=== PATIENT | male | born 1960 | race Caucasian/White ===

== ENCOUNTER → 2018-07-12 09:26 | Outpatient (CLI) | payer BC, SELFPAY ==
--- NOTE | 2018-07-12 09:41 | MR_ITS ---
MR foot LT wo con Ordering Physician: Marcia Deleon MD Patient Age: 58 years: Male HISTORY: ITS.REASON: LEFT FOOT PAIN Left foot pain for 2 months pain at the dorsal aspect of foot toes and extends of the ankle and chin. Also dorsal numbness and tingling left foot TECHNIQUE: Multiplanar multisequence imaging without contrast. 1.5 T MR. COMPARISON : No previous studies . No plain films FINDINGS Osseous structures appear intact. No fractures. Satisfactory relationships on this study.. Toes, Forefoot and metatarsals satisfactory. Upper normal fluid at the first MTP joint. Upper normal signal at the sesamoids along the inferior aspect of first metatarsal head. The dorsal aspect foot shows no remarkable edema and the extensor tendons no significant appreciable abnormalities Appears to be adequate plantar arch .. Note edema throughout [place] fat pad posterior to the ankle joint.. Achilles tendon appears normal with no mid achilles tendinopathy associated. No prominent or discrete retrocalcaneobursitis. I would note generous posterior process of the talus with some fluid surrounding but no discrete fragmented os trigonum; still this possibly could reflect some mild posterior ankle impingement findings if clinical picture suggest such.. But would not account for dorsal foot pain reported in history.. Also note Slight increased fluid of the lateral subtalar joint which extends dorsally. At the lateral ankle be anterior tibial fibular and talofibular ligaments are nicely seen and intact. Upper normal fluid at the lateral ankle joint here and just beneath this area. There is upper normal signal at the distal tibialis posterior tendon near its attachment onto the medial navicular. Nonspecific. Requires correlation is a focal tenderness here.. Could reflect prior minor interstitial injury IMPRESSION: Osseous structures intact. No bone fracture or abnormal bone signal. No prominent findings at the toes nor dorsal foot. Minor observations as noted below.: . Mild edema throughout [place] fat pad posterior to the ankle joint. -Requires correlation . Also some upper normal to slightly increased fluid at lateral subtalar joint tracking dorsally is noted. Nonspecific .Upper normal signal within the distal tibialis posterior tendon. Nonspecific
== END ==
PROVIDERS: PCP Emergency Medicine; Visit Provider Emergency Medicine
DX: M79.672 Pain in left foot (principal)
CPT/HCPCS: 73718

== ENCOUNTER 2021-09-24 14:24 | Inpatient (IN) | payer BC, SELFPAY ==
[2021-09-24] VITALS (20 sets, daily range): BP systolic 131–188; BP diastolic 65–85; PULSE 48–62; RESP 13–19; TEMP 36.8–37; O2SAT 95–99; BMI 24.5; BMI 23.3
--- NOTE | 2021-09-24 | CA_ITS ---
APPROVED REPORT Exam: Pharmacologic Technologist: Hailee Smallwood, Ht: 5 ft 7 in Wt: 151 lbs BSA: 1.79 m2 HR: 54 bpm BP: 167/42 mmHg Rhythm: Sinus chely, right axis, LVH, marked ST-T abn inferiorly and laterally Medical History Medical History: HTN Medications: Aspirin,,,,, Metoprolol,,,,, Protonix,,,,, Aleve,,,,, NitrogGLYCERIN,,,,, Cardiac Risk Factors: HTN, Smoking Stress Test Details Test: LEXISCAN HR Resting HR: 58 bpm Max Heart Rate (APMHR): 159.380553 bpm Max HR Achieved: 120 bpm Target HR (85% APMHR): 135.511361 bpm % of APMHR: 75.47 Recovery HR: 74 bpm BP Resting BP: 167/42 mmHg Max BP: 184/97 mmHg Recovery BP: 146.0/83.0 mmHg ECG Resting ECG: sinus chely, right axis, LVH, marked ST-T abn inferiorly and laterally Clinical Exercise duration: 04:01 min Highest Stage Achieved: Stress ECG Conclusion During lexiscan pt experinced severe CP and SOA in recovery. Mild malaise during vasodilation. Frequent ventricular couplets & triplets in recovery. Exaggeration of baseline ST abns during vasodilation. ST elevation in anterior leads in recovery. Lexiscan induced STEMI. Pt given SL NTGX2 and STEMI alert called. 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 Test Summary REST . . . . . . . Sitting REST 03:32 . . 58 . 167/ 42 . . Stage 1 01:00 . . 97 . . . . Stage 2 01:00 . . 83 . 147/ 66 . . Stage 3 01:00 . . 77 . 144/ 72 . . Stage 4 01:00 . . 81 . . . . Stage 4 01:01 . . 80 . . . Stop exercise at 04:01 RECOVERY 01:00 . . 74 . 132/ 81 . . RECOVERY 02:00 . . 80 . 132/ 81 . . RECOVERY 03:00 . . 80 . 146/ 83 . . RECOVERY 04:00 . . 80 . 146/ 83 . . RECOVERY 05:00 . . 85 . 184/ 97 . . RECOVERY 06:00 . . 104 . 184/ 97 . . RECOVERY 07:00 . . 95 . 184/ 97 . . RECOVERY 08:00 . . 86 . 184/ 97 . . RECOVERY 09:00 . . 86 . 184/ 97 . . RECOVERY 10:00 . . 81 . 184/ 97 . . RECOVERY 11:00 . . 0 . 184/ 97 . . RECOVERY 11:35 . . 0 . 184/ 97 . . Electronically signed by : Simeon Jeff MD 09/25/2021 14:55:05
--- NOTE | 2021-09-24 | IR_ITS ---
APPROVED REPORT Patient Location: Emergent Manager Economic: GERSON Portillo RT (R) PROCEDURES Left heart catheterization Left ventriculogram Selective coronary angiogram Drug-eluting stent deployment to the left main artery Drug-eluting stent deployment to the ostial LAD Drug-eluting stent deployment to the ostial proximal circumflex artery Intravascular ultrasound to the LAD Intravascular ultrasound to the circumflex artery INDICATION Acute anterior ST elevation myocardial infarction, Coronary artery disease Informed consent was obtained prior to the procedure. COMPLICATIONS None Estimated Blood Loss: Less than 10 mls TECHNIQUE One percent lidocaine used to anesthetize the right anterior aspect of the wrist. The right radial artery was accessed via the Seldinger technique. A 6 Turk[place] sheath was placed in the right radial artery. 2.5 mg of verapamil, 800 mcg of nitroglycerin, 1mg Lidocaine and 5000 U Heparin were given through the arterial sheath. The Poppa catheter was also used to perform selective coronary angiogram. Therapeutic heparin had already been administered giving a therapeutic ACT. The guide was placed outside of the left main artery and a Choice PT extra-support wire was placed to the distal tip of the guide catheter without entering the [place] vessel. A 3 mm x 15 mm compliant balloon was then placed at the tip of the guide catheter. The guide catheter was placed in the left main artery and the wire was placed into the LAD followed by the balloon and immediately deployed at 20 juan and deflated. Following this a 4 mm x 15 mm resolute Damir stent was placed in the ostial LAD extending back to the left main artery deployed at 20 juan. A wire was then placed into the left main artery down to the dominant circumflex artery. A 3.5 mm balloon was then used to open the struts going into the circumflex artery. A 5 mm x 8 mm balloon was then placed into the distal left main artery and deployed at 24 juan on multiple occasions. Intravascular ultrasound probe was advanced which demonstrated slight under sizing of the stent in the distal left main artery and proximal LAD. A 4.5 x 15 mm noncompliant balloon was then placed in the LAD back into the left main artery and deployed at 24 juan. Repeat angiography demonstrated significant disease in the dominant circumflex artery therefore a 3.5 x 18 mm resolute [place] stent was placed in the ostial segment of the circumflex artery and deployed at 24 juan reducing the severe stenosis to 0%. A 4.5 x 15 mm balloon was placed back into the LAD left main artery and deployed at 24 juan. At the end of the procedure excellent angiographic results were obtained with wide patency of the left main artery LAD and dominant circumflex artery. After achieving excellent angiographic results the apparatus was removed. 800 mcg of intra-arterial nitroglycerin was administered in order to reduce blood pressure. A left heart catheterization left ventriculogram was performed with the Poppa catheter. Then the procedure the sheath was removed and hemostasis was achieved using TR banding patient was transferred to the postop holding in stable addition ANGIOGRAPHIC RESULTS The left main artery Has a distal 90% stenosis The left anterior descending artery Has an ostial greater than 90% stenosis there is additional mid vessel 30 and 40% stenosis The circumflex artery Is a dominant vessel and has dense calcification in the ostial proximal segment greater than 50%. The mid segment has an additional 40% stenosis. The right coronary artery Small nondominant with a proximal 90% stenosis. This vessel does not encroach upon the left main artery and is barely 2 mm in diameter T
--- NOTE | 2021-09-24 11:32 | NM_ITS ---
APPROVED REPORT Exam: Nuclear Stress Test Indication: chest pain..abn ecg..short of breath Patient Location: Outpatient Stress Tech: Hailee Cl DUMONT Tech:Jeana AbadGERSON RT(R)(N) Ht: 5 ft 7 in Wt: 156 lbs HR: 54 bpm BP: 167/42 mmHg BSA: 1.82 m2 BMI: 24.4 History: chest pain..abn ecg..short of breath Procedure: Patient received a 0.4 mg of intravenous Lexiscan, resting heart rate 54 bpm, resting blood pressure 167/42 mmHg, with Lexiscan maximum heart rate achived was 83 bpm which is 85 % of the maximum predicted heart rate and blood pressure was 147/66 mmHg. Patient started to have chest pain a couple of mins after injecting lexiscan..Cristobal Taylor PA in the stress room called a stemi alert, so patient went straight to the tutorial laboratory supervisor and I was unable to finish stress pictures Cardiac Stress and Resting SPECT Images: Cardiac Stress and Resting SPECT images were obtained using technetium 99m Myoview 32.8 mCi stress and 10.12 mCi at rest. Conclusion: 1. Patient developed marked ST-T changes with Lexiscan, subsequently patient was taken to the Sales Engagement Executive, no imaging were performed Electronically signed by : Simeon Jeff MD 09/25/2021 14:55:46
[2021-09-24 13:59] LABS: Chloride 105 mmol/L (98-107); Potassium 4.2 mmoL/L (3.5-5.1); Sodium 133 mmol/L (136-145)
[2021-09-24 14:02] LABS: Anion Gap 12.2 mEq/L (5-15); Basophils # 0.1 K/mm3 (0-0.2); Basophils % 0.7 % (0.1-2.0); Blood Urea Nitrogen 14 mg/dl (9-20); Calcium 8.6 mg/dl (8.4-10.2); Carbon Dioxide 20 mmol/L (22.0-30.0); Creatinine Clearance Estimated 78 mL/min (50-200); Eosinophils # 0.3 K/mm3 (0.0-0.4); Eosinophils % 2.4 % (0.1-12.0); Estimated Glomerular Filt Rate 86 ml/min (>60); GFR (African American) 104 ML/MIN (>60); Glucose 123 mg/dl (74-100); Hematocrit 40.3 % (42.0-52.0); Hemoglobin 13.4 g/dL (14.1-18.0); Lymphocytes # 4.4 K/mm3 (0.7-4.5); Lymphocytes % 35.8 % (10-50); Mean Corpuscular HGB Conc 33.2 g/dL (31.8-35.4); Mean Corpuscular Volume 102.6 fl (80-94); Mean Platelet Volume 7.7 fl (7.4-10.4); Monocytes # 0.7 K/mm3 (0.1-1.0); Monocytes % 5.5 % (1.7-9.3); Neutrophils # 6.9 K/mm3 (1.8-7.8); Neutrophils % 55.5 % (37.0-80.0); Platelet Count 255 K/mm3 (142-424); Red Blood Count 3.93 M/mm3 (4.60-6.20); Red Cell Distribution Width 15.3 % (11.5-17.5); White Blood Count 12.3 K/mm3 (4.8-10.8)
--- NOTE | 2021-09-24 14:27 | P.CONPHA_ITS ---
[facility] Pharmacy VTE Monitoring - Patient Demographics Admission date: 09/24/21 Report Date: 09/24/21 Time: 14:27 Allergies/Adverse Reactions: Patient Allergies codeine Adverse Reaction (Verified 09/16/21 14:31) Height: 1.7 m Weight: 70.9 kg - VTE Risk Labs: VTE Related Lab Results Hgb 13.4 g/dL (14.1-18.0) L 09/24/21 13:45 Hct 40.3 % (42.0-52.0) L 09/24/21 13:45 Plt Count 255 K/mm3 (142-424) 09/24/21 13:45 BUN 14 mg/dl (9-20) 09/24/21 13:45 Creatinine 0.90 mg/dl (0.66-1.25) 09/24/21 13:45 Estimated Creat Clear 78 mL/min (50-200) 09/24/21 13:45 - Prophylaxis VTE Prophylaxis Ordered?: Yes Types of VTE Prophylaxis: TEDS Knee High Location of Applied Device: Bilateral Lower Extremeties
--- NOTE | 2021-09-24 14:28 | HMH.CNCARD ---
History of Present Illness Consult date: 09/24/21 Requesting physician: Andrea Moses Consult reason: chest pain Chief complaint: chest pain History of present illness: This is a 61 year old white male who was in the hospital for Lexiscan myoview stress testing today. After the Lexiscan portion of the stress test was over and he was taking a drink of [place], he had sudden onset on chest pain. this is a pressure sensation in the center of the chest. did not radiate. associated with SOB, nausea and diaphoresis. this was severe 10/10 pain. pt took 2 nitro of his own meds without improvement in symptoms. Pt was having an anterior STEMI and will be taken directly to the crime lab analyst. [facility] History I have reviewed the patient's past medical history: Yes Medical History: Reports:: Ulcer *Have you ever received a pneumonia vaccine?: No *Have you received a flu vaccine this season?: No Other Surgeries: Yes: Other (Bone put in his ear ) Amputation: No Fractures: No - *Social History Smoking Status: Current every day smoker Tobacco Type: cigarettes Alcohol Intake: never *Occupational Status:: employed Housing: house Household Members: significant other *Travel in the last 8 weeks: None Family Hx:: No significant family history Meds Home Medications Medication Instructions Recorded Confirmed Type aspirin 81 mg chewable tablet 81 mg PO DAILY #100 tab 09/14/21 09/24/21 Rx naproxen sodium 220 mg tablet 220 mg PO BIDP PRN 09/14/21 09/24/21 History Metoprolol Succinate [Metoprolol 50 mg PO DAILY 09/24/21 09/24/21 History Succinate 50mg Tablet*] Nitroglycerin 0.4 mg SL Q5MINP PRN 09/24/21 09/24/21 History Pantoprazole Sodium 40 mg PO DAILY 09/24/21 09/24/21 History Allergies Allergy/AdvReac Type Severity Reaction Status Date / Time codeine AdvReac Verified 09/16/21 14:31 Exam Vital signs and Labs for Last 24 Hours: Laboratory Results - last 24 hr 09/24/21 13:45: WBC 12.3 H, RBC 3.93 L, Hgb 13.4 L, Hct 40.3 L, MCV 102.6 H, MCH 34.0 H, MCHC 33.2, RDW 15.3, Plt Count 255, MPV 7.7, Neut % (Auto) 55.5, Lymph % (Auto) 35.8, [place] % (Auto) 5.5, Eos % (Auto) 2.4, Baso % (Auto) 0.7, Neut # (Auto) 6.9, Lymph # (Auto) 4.4, [place] # (Auto) 0.7, Eos # (Auto) 0.3, Baso # (Auto) 0.1 09/24/21 13:45: Sodium 133 L, Potassium 4.2, Chloride 105, Carbon Dioxide 20 L, Anion Gap 12.2, BUN 14, Creatinine 0.90, Estimated Creat Clear 78, Estimated GFR 86, Est GFR ( Amer) 104, Glucose 123 H, Calcium 8.6 I & O for Last 24 hours: Intake & Output 09/21/21 09/22/21 09/23/21 09/24/21 23:59 23:59 23:59 23:59 Weight 156 lb 4.924 oz Narrative: [facility] shows: ANGIOGRAPHIC RESULTS The left main artery Has a distal 90% stenosis The left anterior descending artery Has an ostial greater than 90% stenosis there is additional mid vessel 30 and 40% stenosis The circumflex artery Is a dominant vessel and has dense calcification in the ostial proximal segment greater than 50%. The mid segment has an additional 40% stenosis. The right coronary artery Small nondominant with a proximal 90% stenosis. This vessel does not encroach upon the left main artery and is barely 2 mm in diameter The LABOY ventriculogram reveals Hyperdynamic 75% The left ventricular end-diastolic pressure [address] mmHg [address] Acute anterior ST elevation myocardial infarction involving a critically stenosed distal left main artery also involving a critically stenosed ostial LAD Successful left main reconstruction with bifurcating stents into the proximal LAD and proximal dominant circumflex artery Hyperdynamic ventricle consistent with hypertensive heart disease Elevated LVEDP consistent with hypertensive heart disease PLAN 1. Brilinta 90 twice daily plus aspirin 81 mg daily 2. Control of hypertension 3. MOIRA inhibitor's and beta-blockers 4. Avoidance of tobacco products 5. LDL goal of 55 to be achieved with high intensity statin 6. Cardiac rehabilitation 7. Aggressive risk factor amanda
--- NOTE | 2021-09-24 14:33 | HMH.PHAINT ---
MEDICATION RECONCILIATION COMPLETED ON PATIENT USING EXTERNAL FILL HISTORY FROM PHARMACY AND LIST FROM PCP OFFICE. -YANDY MACD
[2021-09-24 14:53] LABS: Coronavirus 19, PCR Not Detected (NotDetected); Influenza A, PCR Not Detected (NotDetected); Influenza B, PCR Not Detected (NotDetected)
--- NOTE | 2021-09-24 15:00 | PC.NURSE ---
arrived to room 217 at this time
[2021-09-24 15:02] LABS: CATHL Activated Clotting Time 345 SEC (74-125)
[2021-09-24 15:02] LABS: CATHL Activated Clotting Time > 400 SEC (74-125)
[2021-09-24 15:02] LABS: CATHL Activated Clotting Time 316 SEC (74-125)
--- NOTE | 2021-09-24 15:20 | CA_ITS ---
APPROVED REPORT EXAM: Comprehensive 2D, Doppler, and color-flow Echocardiogram Flexible Machining System Machinist: Claudia Crespo, RCS, RVS Ht: 5 ft 6 in Wt: 151lbs BSA: 1.77 BP: 145/58 mmHg Indications: [id number]-0/17/22, ABN EKG, Smoker, SOB, CP, HTN 2D Dimensions Aortic Root 1.35 cm LA Volume 49.30 mL Left Atrium 1.59 cm LA Volume Index 27.90 mL/m2 (M/F) 16-34 LVOT 1.81 cm (M/F) 1.5-2.5 M-Mode Dimensions RVDd 2.22 cm (0.9-2.6) LA Diam 3.91 cm (1.9-4.0) LVDd 5.01 cm (3.5-5.7) Ao Diam 2.91 cm (2.0-3.7) LVDs 3.58 cm (3.5-5.7) IVSd 1.22 cm (0.6-1.1) PWd 0.97 cm (0.6-1.1) EF (Teich) 54.80% EPSs 0.32 cm FS 28.50% EDV (Teich) 118.80 mL TAPSE 2.46 (<1.7) ESV (Teich) 53.70 mL LV Diastology E Decel Time 220.00 (160-240 msec) E/A Ratio 1.29 MED E' 6.50 (< 7 cm/sec) MED A' 9.20 cm/s E'/MED E' Ratio 16.65 (>14) LAT E' 5.30 (<10 cm/sec) LAT A' 7.50 cm/s E/LAT E' Ratio 20.42 (>14) Aortic Valve LVOT Max 125.00 (70-110 cm/s) LVOT VTI 23.71 cm AoV Peak Gerardo. 156.00 (50-130 cm/s) AO Peak GR. 9.70 mmHg AO Mean GR. 4.40 (<5 mmHg) AO VTI 30.36 (18-25 cm) JORGE (VTI) 2.01 (2.5-4.5 cm2) Mitral Valve MV A Velocity 84.00 (40-130 cm/s) E/A Ratio 1.29 MV Decel. Time 220.00 (160-240 ms) Pulmonary Valve PV Peak Velocity 127.00 (50-150 cm/s) Tricuspid Valve TR P. Velocity 137.00 cm/s Left Ventricle Left atrium is mildly enlarged, left ventricle normal size, mild concentric left ventricular hypertrophy, visually estimated ejection fraction 55% with no regional wall motion abnormality, diastolic parameters inconclusive in the study. Right Ventricle Right atrium and right ventricle are normal size and contractility. Aortic Valve Aortic valve is minimally thickened and calcified without aortic stenosis or aortic insufficiency. Mitral Valve Mitral valve has mitral annular calcification there is no mitral stenosis. There is mild mitral regurgitation. Tricuspid Valve Tricuspid grossly normal, there is mild tricuspid rotation, tricuspid regurgitation jet velocity is inadequate for calculation of the right ventricular systolic pressure. Pulmonic Valve Pulmonic valve is poorly visualized. Great Vessels Aortic root is normal size. Inferior vena cava is normal size with normal inspiratory collapse. Pericardium No significant pericardial effusion noted. Conclusion 1. Mildly enlarged left atrium, normal left ventricular size, mild concentric left ventricular hypertrophy, visually estimated ejection fraction 55% with no obvious regional wall motion abnormality, diastolic parameters are inconclusive in the study. 2. Mild mitral and tricuspid regurgitation. 3. No significant pericardial effusion noted. Electronically signed by : Simeon Jeff MD 09/25/2021 14:01:50
--- NOTE | 2021-09-24 16:34 | PC.NURSE ---
Pt's HR upon arrival to the floor was 58. It has been trending down and is now staying around 48. Dr. [place] has been notified. BP 134/67.
[2021-09-25] VITALS (15 sets, daily range): BP systolic 130–178; BP diastolic 48–83; PULSE 49–60; RESP 13–21; TEMP 36.7–37.1; O2SAT 95–98; BMI 22.5; BMI 22.4
--- NOTE | 2021-09-25 03:56 | PC.NURSE ---
No acute changes noted. Pt denies any discomfort or soa. Pt has remained sinus chely on telemetry with ST depression. HR declined as low as 49 this shift. BP was elevated early in shift. Currently stable. Pt c/o slight headache early in the evening, but declined any medication for it. He has ambulated to without any difficulty. (R) radial site is C/D/I. No other concerns. Will continue to monitor.
[2021-09-25 06:39] LABS: Alanine Aminotransferase 15 U/L (12-78); Alkaline Phosphatase 73 U/L (38-126); Aspartate Amino Transferase 29 U/L (17-59); Bilirubin,Direct 0.2 mg/dl (0.0-0.4); Bilirubin,Indirect 0.6 mg/dL (0.0-0.9); Bilirubin,Total 0.8 mg/dl (0.2-1.3); Bilirubin,Unconjugated 0.6 mg/dL (0.0-1.1); Cholesterol 137 mg/dl (140-200); Triglycerides 135 mg/dl (30-150); VLDL Cholesterol 27 mg/dL (0-40)
[2021-09-25 06:40] LABS: Albumin Level 3.8 g/dl (3.5-5.0); Chol/HDL Ratio 3.6 (1-3.5); HDL Cholesterol 38 mg/dl (40-60); Total Protein,Serum 6.6 g/dl (6.3-8.2)
[2021-09-25 06:42] LABS: Chloride 104 mmol/L (98-107); Potassium 4.3 mmoL/L (3.5-5.1); Sodium 132 mmol/L (136-145)
[2021-09-25 06:45] LABS: Anion Gap 6.3 mEq/L (5-15); Blood Urea Nitrogen 14 mg/dl (9-20); Carbon Dioxide 26 mmol/L (22.0-30.0); Creatinine Clearance Estimated 71 mL/min (50-200); Estimated Glomerular Filt Rate 76 ml/min (>60); GFR (African American) 92 ML/MIN (>60)
[2021-09-25 06:46] LABS: Calcium 8.3 mg/dl (8.4-10.2); Glucose 110 mg/dl (74-100)
[2021-09-25 06:47] LABS: Basophils # 0.1 K/mm3 (0-0.2); Basophils % 0.6 % (0.1-2.0); Eosinophils # 0.2 K/mm3 (0.0-0.4); Eosinophils % 1.9 % (0.1-12.0); Hematocrit 39.9 % (42.0-52.0); Hemoglobin 12.9 g/dL (14.1-18.0); Lymphocytes # 3.3 K/mm3 (0.7-4.5); Lymphocytes % 29.6 % (10-50); Mean Corpuscular HGB Conc 32.4 g/dL (31.8-35.4); Mean Corpuscular Hemoglobin 33.8 pg (27.0-31.2); Mean Corpuscular Volume 104.3 fl (80-94); Mean Platelet Volume 7.9 fl (7.4-10.4); Monocytes # 0.9 K/mm3 (0.1-1.0); Monocytes % 7.9 % (1.7-9.3); Neutrophils # 6.8 K/mm3 (1.8-7.8); Neutrophils % 60.1 % (37.0-80.0); Platelet Count 231 K/mm3 (142-424); Red Blood Count 3.83 M/mm3 (4.60-6.20); Red Cell Distribution Width 15.5 % (11.5-17.5); White Blood Count 11.2 K/mm3 (4.8-10.8)
[2021-09-25 06:56] LABS: Direct LDL Cholesterol 78.83 mg/dL (100-129)
--- NOTE | 2021-09-25 08:43 | HMH.HP ---
*Admission Date: 09/24/21 *Chief complaint: chest pain *History of present illness: 61 year old white male who was in the hospital for Lexiscan myoview stress testing today. After the Lexiscan portion of the stress test was over and he was taking a drink of [place], he had sudden onset on chest pain. this is a pressure sensation in the center of the chest. did not radiate. associated with SOB, nausea and diaphoresis. this was severe 10/10 pain. pt took 2 nitro of his own meds without improvement in symptoms. Pt was having an anterior STEMI and will be taken directly to the collaborative teacher. pt admitted for monitoring [facility] History I have reviewed the patient's past medical history: Yes Medical History: Reports:: Ulcer Denies:: Cancer, Diabetes Mellitus Type 1, Diabetes Mellitus Type 2, MRSA *Have you ever received a pneumonia vaccine?: No *Have you received a flu vaccine this season?: No Other Surgeries: Yes: Other (Bone put in his ear ) Amputation: No Fractures: No - *Social History Smoking Status: Current every day smoker Tobacco Type: cigarettes # Packs/Day (cigarettes): 1 Alcohol Intake: never *Occupational Status:: employed Housing: house Household Members: significant other *Travel in the last 8 weeks: None Family Hx:: Unable to obtain Review of Systems - Review of Systems Review of systems:: pertinent systems reviewed and negative unless documented below - Constitutional Denies body ache(s), Denies lack of energy - Eyes Denies blind spots - ENT Denies bleeding gums, Denies headache(s) - *Cardiovascular Reports chest pain, Reports chest pain at rest, Reports chest pain with activity, Reports shortness of breath - *Respiratory Reports shortness of breath, Denies cough - *Gastrointestinal Denies abdominal pain - *Genitourinary Denies urinary incontinence - *Musculoskeletal Denies abnormal walking - Integumentary/Breasts Denies acne - *Neurologic Denies dizziness - Psychiatric Denies lack of enjoyment - Endocrine Denies excessive sweating - Hematologic/Lymphatic Denies easy bruising - Allergic/Immunologic Denies itchy eyes Meds Home Medications Medication Instructions Recorded Confirmed Type aspirin 81 mg chewable tablet 81 mg PO DAILY #100 tab 09/14/21 09/24/21 Rx naproxen sodium 220 mg tablet 220 mg PO BIDP PRN 09/14/21 09/24/21 History Metoprolol Succinate [Metoprolol 50 mg PO DAILY 09/24/21 09/24/21 History Succinate 50mg Tablet*] Nitroglycerin 0.4 mg SL Q5MINP PRN 09/24/21 09/24/21 History Pantoprazole Sodium 40 mg PO DAILY 09/24/21 09/24/21 History Allergies Allergy/AdvReac Type Severity Reaction Status Date / Time codeine AdvReac Verified 09/16/21 14:31 Exam Vital signs and Labs for Last 24 Hours: Temp Pulse Resp BP Pulse Ox 98.1 F 50 L 21 136/59 L 98 09/25/21 08:00 09/25/21 08:00 09/25/21 08:00 09/25/21 08:00 09/25/21 08:00 Laboratory Results - last 24 hr 09/24/21 12:20: Activated Clotting Time 345 H* 09/24/21 13:45: WBC 12.3 H, RBC 3.93 L, Hgb 13.4 L, Hct 40.3 L, MCV 102.6 H, MCH 34.0 H, MCHC 33.2, RDW 15.3, Plt Count 255, MPV 7.7, Neut % (Auto) 55.5, Lymph % (Auto) 35.8, [place] % (Auto) 5.5, Eos % (Auto) 2.4, Baso % (Auto) 0.7, Neut # (Auto) 6.9, Lymph # (Auto) 4.4, [place] # (Auto) 0.7, Eos # (Auto) 0.3, Baso # (Auto) 0.1 09/24/21 13:45: Sodium 133 L, Potassium 4.2, Chloride 105, Carbon Dioxide 20 L, Anion Gap 12.2, BUN 14, Creatinine 0.90, Estimated Creat Clear 78, Estimated GFR 86, Est GFR ( Amer) 104, Glucose 123 H, Calcium 8.6 09/24/21 14:41: Activated Clotting Time > 400 H* 09/24/21 14:48: SARS-CoV-2 (PCR) Not detected, Influenza A Untype (PCR) Not detected, Influenza Type B (PCR) Not detected 09/24/21 15:11: Activated Clotting Time 316 H* D 09/25/21 05:07: Total Bilirubin 0.8, Direct Bilirubin 0.2, Conjugated Bilirubin 0.0, Indirect Bilirubin 0.6, Unconjugated Bilirubin 0.6, AST 29, ALT 15, Alkaline Phosphatase 73, Total Protein 6.6, Albumin
--- NOTE | 2021-09-25 10:47 | HMH.PNCARD ---
Subjective Date: 09/25/21 Time: 10:47 Principal diagnosis: STEMI Interval history: 61-year-old white male in bed in no acute distress denies chest pain, pressure or tightness overnight. No further episodes of heartburn. Nursing relates low heart rate overnight with holding of beta-peter this AM. Have asked the patient to ambulate this morning to clarify what dose of beta-peter he needs to be on. Exam Vital signs and Labs for Last 24 Hours: Temp Pulse Resp BP Pulse Ox 98.1 F 49 L 16 136/64 97 09/25/21 08:00 09/25/21 10:00 09/25/21 10:00 09/25/21 10:00 09/25/21 10:00 Laboratory Results - last 24 hr 09/24/21 12:20: Activated Clotting Time 345 H* 09/24/21 13:45: WBC 12.3 H, RBC 3.93 L, Hgb 13.4 L, Hct 40.3 L, MCV 102.6 H, MCH 34.0 H, MCHC 33.2, RDW 15.3, Plt Count 255, MPV 7.7, Neut % (Auto) 55.5, Lymph % (Auto) 35.8, [place] % (Auto) 5.5, Eos % (Auto) 2.4, Baso % (Auto) 0.7, Neut # (Auto) 6.9, Lymph # (Auto) 4.4, [place] # (Auto) 0.7, Eos # (Auto) 0.3, Baso # (Auto) 0.1 09/24/21 13:45: Sodium 133 L, Potassium 4.2, Chloride 105, Carbon Dioxide 20 L, Anion Gap 12.2, BUN 14, Creatinine 0.90, Estimated Creat Clear 78, Estimated GFR 86, Est GFR ( Amer) 104, Glucose 123 H, Calcium 8.6 09/24/21 14:41: Activated Clotting Time > 400 H* 09/24/21 14:48: SARS-CoV-2 (PCR) Not detected, Influenza A Untype (PCR) Not detected, Influenza Type B (PCR) Not detected 09/24/21 15:11: Activated Clotting Time 316 H* D 09/25/21 05:07: Total Bilirubin 0.8, Direct Bilirubin 0.2, Conjugated Bilirubin 0.0, Indirect Bilirubin 0.6, Unconjugated Bilirubin 0.6, AST 29, ALT 15, Alkaline Phosphatase 73, Total Protein 6.6, Albumin 3.8, Triglycerides 135, Cholesterol 137 L, LDL Cholesterol Direct 78.83 L, VLDL Cholesterol 27, HDL Cholesterol 38 L, Cholesterol/HDL Ratio 3.6 H 09/25/21 05:07: WBC 11.2 H, RBC 3.83 L, Hgb 12.9 L, Hct 39.9 L, MCV 104.3 H, MCH 33.8 H, MCHC 32.4, RDW 15.5, Plt Count 231, MPV 7.9, Neut % (Auto) 60.1, Lymph % (Auto) 29.6, [place] % (Auto) 7.9, Eos % (Auto) 1.9, Baso % (Auto) 0.6, Neut # (Auto) 6.8, Lymph # (Auto) 3.3, [place] # (Auto) 0.9, Eos # (Auto) 0.2, Baso # (Auto) 0.1 09/25/21 05:07: Sodium 132 L, Potassium 4.3, Chloride 104, Carbon Dioxide 26, Anion Gap 6.3, BUN 14, Creatinine 1.00, Estimated Creat Clear 71, Estimated GFR 76, Est GFR ( Amer) 92, Glucose 110 H, Calcium 8.3 L I & O for Last 24 hours: Intake & Output 09/22/21 09/23/21 09/24/21 09/25/21 11:59 11:59 11:59 11:59 Intake Total 480 / 480 Output Total 600 / 600 Balance -120 / -120 Weight 143 lb 9.6 oz - Constitutional no acute distress - *Routine Respiratory Exam Present: CTA bilaterally - *Routine Cardiovascular Exam Present: RRR - *Routine Extremities Exam Absent: cyanosis, clubbing, edema - *Routine Neurological Exam Present: alert, oriented X3 Progress Note: A&P (1) STEMI (ST elevation myocardial infarction) Status: Acute (2) Angina pectoris Status: Acute (3) Smoker Status: Acute (4) CAD (coronary artery disease) Status: Acute (5) HLD (hyperlipidemia) Status: Acute (6) HTN (hypertension) Status: Acute Assessment and Plan for All Diagnoses:: Clinically stable from a cardiac standpoint. No arrhythmias noted on telemetry overnight Possibly home later today Home medication recommendations Aspirin 81 mg daily Brilinta 90 mg twice daily Atorvastatin 80 mg daily Lisinopril 20 mg daily Metoprolol succinate 12.5 mg daily Follow-up in our office in 1 week.
--- NOTE | 2021-09-25 14:08 | PC.NURSE ---
Called and spoke with Jillian, to move patient status in the computer from Stepdown to acute.
--- NOTE | 2021-09-25 14:26 | PC.NURSE ---
pt has ambulated around entire unit twice today. No episodes of lightheadedness, dizziness, or weakness. Denies chest pain and headaches today. Gait is steady. HR mainly in the 40s today but increased to 60 with ambulation.
--- NOTE | 2021-09-25 20:44 | HMH.DCSUM ---
General - General Admission date:: 09/24/21 Discharge date: 09/25/21 HPI HPI: 61 year old white male who was in the hospital for Lexiscan myoview stress testing today. After the Lexiscan portion of the stress test was over and he was taking a drink of Mt. Dew, he had sudden onset on chest pain. this is a pressure sensation in the center of the chest. did not radiate. associated with SOB, nausea and diaphoresis. this was severe 10/10 pain. pt took 2 nitro of his own meds without improvement in symptoms. Pt was having an anterior STEMI and will be taken directly to the geophysical laboratory director. pt admitted for monitoring Hospital Course Hospital Course: pt with acute stemi after stress test - was taken to geophysical laboratory director -ANGIOGRAPHIC RESULTS The left main artery Has a distal 90% stenosis The left anterior descending artery Has an ostial greater than 90% stenosis there is additional mid vessel 30 and 40% stenosis The circumflex artery Is a dominant vessel and has dense calcification in the ostial proximal segment greater than 50%. The mid segment has an additional 40% stenosis. The right coronary artery Small nondominant with a proximal 90% stenosis. This vessel does not encroach upon the left main artery and is barely 2 mm in diameter The LABOY ventriculogram reveals Hyperdynamic 75% The left ventricular end-diastolic pressure 20 mmHg IMPRESSION Acute anterior ST elevation myocardial infarction involving a critically stenosed distal left main artery also involving a critically stenosed ostial LAD Successful left main reconstruction with bifurcating stents into the proximal LAD and proximal dominant circumflex artery Hyperdynamic ventricle consistent with hypertensive heart disease Elevated LVEDP consistent with hypertensive heart disease PLAN 1. Brilinta 90 twice daily plus aspirin 81 mg daily 2. Control of hypertension 3. MOIRA inhibitor's and beta-blockers 4. Avoidance of tobacco products 5. LDL goal of 55 to be achieved with high intensity statin 6. Cardiac rehabilitation 7. Aggressive risk factor modification a 61 year old white male who was in the hospital for Lexiscan myoview stress testing today. After the Lexiscan portion of the stress test was over and he was taking a drink of Mt. Dew, he had sudden onset on chest pain. this is a pressure sensation in the center of the chest. did not radiate. associated with SOB, nausea and diaphoresis. this was severe 10/10 pain. pt took 2 nitro of his own meds without improvement in symptoms. Pt was having an anterior STEMI and will be taken directly to the geophysical laboratory director. . Patient was here for stress test and after Lexiscan was infused the patient had ST elevation. STEMI alert was called and the patient was taken directly to the cardiac catheterization laboratory. The patient had stenting to the left main artery and circumflex artery. He tolerated the procedure well and be on dual antiplatelet therapy with Brilinta and aspirin. 2. Continue metoprolol. 3. Start lisinopril 20 mg p.o. daily status post STEMI. 4. We will get an echocardiogram to evaluate his LV function. 5. Blood pressure is elevated. This will likely improve with lisinopril. 6. His LDL goal is less than 55. We will get a lipid panel in the morning. On a statin. 7. Tobacco cessation is highly advised and counseled. 8. Further recommendations were made pending the patient's response to treatment. stable from a cardiac standpoint. No arrhythmias noted on telemetry overnight Possibly home later today Home medication recommendations Aspirin 81 mg daily Brilinta 90 mg twice daily Atorvastatin 80 mg daily Lisinopril 20 mg daily Metoprolol succinate 12.5 mg daily Follow-up in our office in 1 week. pt has did well with stable activity and vital signs and will be d/c to see pcp and card Objective Vital signs: Temp Pulse Resp BP Pulse Ox 98.4 F 58 L 16 132/65 97 09/25/21 20:00 09/25/21 20:00 09/25/21 20:00 09/25/21 20:00 0
--- NOTE | 2021-09-25 23:44 | PC.NURSE ---
DSG to (R) radial cath site removed. No hematoma or bleeding noted. IV #20 RAC DC. Education provided. Arm immobilizer placed. Pt left floor in WC accompanied by staff to family car at [id number].
--- NOTE | 2021-09-26 10:44 | HMH.PHACLD ---
LEFT AFTER HOURS, VERIFIED PATIENT IS ON ALL MEDICATIONS HE SHOULD BE FOLLOWING A STENT: -ASPIRIN -BRILINTA -METOPROLOL -ATORVASTATIN -LISINOPRIL
== END 2021-09-25 22:12 | disposition home or self-care (01) | DRG 247 ==
LOC: 2ND 14:25
PROVIDERS: Internal Medicine; Nurse Practitioner Family; Admitting Provider Family Medicine; PCP Family Medicine; Visit Provider Family Medicine
PROC: 027135Z Dilation of Coronary Artery, Two Arteries with Two Drug-eluting Intraluminal Devices, Percutaneous Approach (ICD-10-PCS; principal; 2021-09-24 09:45)
DX: I21.01 ST elevation (STEMI) myocardial infarction involving left main coronary artery (principal); I25.119 Atherosclerotic heart disease of native coronary artery with unspecified angina pectoris; E78.5 Hyperlipidemia, unspecified; I10 Essential (primary) hypertension; F17.210 Nicotine dependence, cigarettes, uncomplicated; Z71.6 Tobacco abuse counseling; Z20.822 Contact with and (suspected) exposure to COVID-19
CPT/HCPCS: 78452; 80048; 80061; 80076; 85025; 85347; 92928; 92941; 93017; 93306; 93458; 99152; 99153; A9502; C1725; C1769; C1876; C9600; C9606; C9803; J1644; J2785; Q9967; U0003; U0005

== ENCOUNTER → 2021-10-09 08:23 | Outpatient (CLI) | payer BC, SELFPAY ==
--- NOTE | 2021-10-09 08:23 | US_ITS ---
FINAL REPORT CLINICAL HISTORY: tobacco user FINDINGS: Limited sonographic images were obtained of the abdomen to evaluate the abdominal aorta and iliac arteries. The abdominal aorta measures up to 1.9 cm in greatest dimension. There is mild to moderate plaque noted. The iliac arteries are within normal limits. They measure 1.1 cm on the left and 1.2 cm on the right. IMPRESSION: No evidence of abdominal aortic aneurysm. Reviewed, Interpreted and Dictated by Obey Ferreira III, MD Transcribed by Deepika Tomas Authenticated by Obey Ferreira III, MD on 10/09/2021 11:26:19 AM [facility]
--- NOTE | 2021-10-09 08:43 | CA_ITS ---
FINAL REPORT TECHNIQUE: Color Doppler, duplex Doppler and schmitt scale sonography of the bilateral neck arterial vasculature was performed. Velocities were measured in the carotid arteries. Stenosis evaluation based on the validated velocity criteria. CLINICAL HISTORY: left carotid bruit, recent [place], 2 cardiac stents last month, CAD, smoker, HTN, HLD. FINDINGS: The peak systolic velocity of the right common carotid artery is 113 cm/s. The peak systolic velocity of the right internal carotid artery is 143 cm/s and end diastolic velocity 37 cm/s. A mild amount of plaque is present. The right external carotid artery is patent. The right vertebral artery is patent with antegrade flow. ICA/CCA ratio: 1.7 The peak systolic velocity of the left common carotid artery is 100 cm/s. The peak systolic velocity of the left internal carotid artery is 268 cm/s and end diastolic velocity 83 cm/s. A mild amount of plaque is present. The left external carotid artery is patent.The left vertebral artery is patent with antegrade flow. ICA/CCA ratio: 4.0 IMPRESSION: 70-99% left carotid stenosis. Consider correlation with CTA. Less than 50% right carotid stenosis. Bilateral patent vertebral arteries with antegrade flow. Reviewed, Interpreted and Dictated by Obey Ferreira III, MD Transcribed by Bunny Abreu Authenticated by Obey Ferreira III, MD on 10/09/2021 10:20:[address] [facility]
== END ==
PROVIDERS: PCP Family Medicine; Visit Provider Nurse Practitioner Family
DX: R09.89 Other specified symptoms and signs involving the circulatory and respiratory systems (principal); I25.10 Atherosclerotic heart disease of native coronary artery without angina pectoris; I21.01 ST elevation (STEMI) myocardial infarction involving left main coronary artery; I10 Essential (primary) hypertension; E78.5 Hyperlipidemia, unspecified; F17.200 Nicotine dependence, unspecified, uncomplicated
CPT/HCPCS: 76770; 93880

== ENCOUNTER → 2023-01-13 23:00 | Outpatient (CLI) | payer BC, SELFPAY ==
[2023-01-13 18:39] LABS: Basophils % 0.4 % (0.1-2.0); Eosinophils # 0.4 K/mm3 (0.0-0.4); Eosinophils % 4.6 % (0.1-12.0); Hematocrit 43.4 % (42.0-52.0); Lymphocytes # 2.6 K/mm3 (0.7-4.5); Lymphocytes % 31.8 % (10-50); Mean Corpuscular HGB Conc 32.2 g/dL (31.8-35.4); Mean Corpuscular Hemoglobin 33.3 pg (27.0-31.2); Mean Corpuscular Volume 103.4 fl (80-94); Mean Platelet Volume 8.6 fl (7.4-10.4); Monocytes # 0.7 K/mm3 (0.1-1.0); Neutrophils # 4.6 K/mm3 (1.8-7.8); Neutrophils % 55.3 % (37.0-80.0); Platelet Count 228 K/mm3 (142-424); Red Cell Distribution Width 15.1 % (11.5-17.5); White Blood Count 8.3 K/mm3 (4.8-10.8)
[2023-01-13 19:00] LABS: Alanine Aminotransferase 34 U/L (12-78); Albumin Level 4.2 g/dl (3.5-5.0); Albumin/Globulin Ratio 1.5 (1.1-1.8); Alkaline Phosphatase 108 U/L (38-126); Anion Gap 15.3 mEq/L (5-15); Aspartate Amino Transferase 34 U/L (17-59); Bilirubin,Total 0.5 mg/dl (0.2-1.3); Blood Urea Nitrogen 18 mg/dl (9-20); Calcium 9.1 mg/dl (8.4-10.2); Carbon Dioxide 23 mmol/L (22.0-30.0); Chloride 105 mmol/L (98-107); Chol/HDL Ratio 1.5 (1-3.5); Cholesterol 103 mg/dl (140-200); Estimated Glomerular Filt Rate 76 ml/min (>60); GFR (African American) 92 ML/MIN (>60); Globulin 2.8 g/dL (1.3-3.2); Glucose 101 mg/dl (74-100); HDL Cholesterol 69 mg/dl (40-60); Potassium 4.3 mmoL/L (3.5-5.1); Sodium 139 mmol/L (136-145); Triglycerides 70 mg/dl (30-150); VLDL Cholesterol 14 mg/dL (0-40)
[2023-01-13 19:11] LABS: Direct LDL Cholesterol 33.19 mg/dL (100-129)
[2023-01-13 19:19] LABS: 25-OH Vitamin D, Total 19.6 ng/mL (30-100)
[2023-01-13 19:33] LABS: Prostate Specific Ag Screen 1.1 ng/ml (0.0-4.0); Thyroid Stimulating Hormone 1.74 uIU/mL (0.465-4.68)
== END ==
PROVIDERS: PCP Nurse Practitioner Family; Visit Provider Nurse Practitioner Family
DX: I10 Essential (primary) hypertension (principal); E78.5 Hyperlipidemia, unspecified; R53.83 Other fatigue; E55.9 Vitamin D deficiency, unspecified; Z12.5 Encounter for screening for malignant neoplasm of prostate
CPT/HCPCS: 80053; 80061; 82306; 84443; 85025; G0103

== ENCOUNTER → 2023-01-21 09:46 | Outpatient (CLI) | payer BC, SELFPAY ==
[2023-01-21 10:30] VITALS: PULSE 49; PULSE 51
== END ==
LOC: RT 09:46
PROVIDERS: PCP Nurse Practitioner Family; Visit Provider Nurse Practitioner Family
DX: R06.02 Shortness of breath (principal); F17.200 Nicotine dependence, unspecified, uncomplicated
CPT/HCPCS: 94060; 94618; 94640; 94727; 94729

== ENCOUNTER → 2023-03-02 06:30 | Outpatient (CLI) | payer BC, SELFPAY ==
--- NOTE | 2023-03-02 06:34 | NM_ITS ---
APPROVED REPORT Exam: Nuclear Stress Test Indication: Chest pain, SOB, Fatigue, HTN, CAD, Hx of SD, High cholesterol, Tobacco use Patient Location: Outpatient Stress Tech: Jennifer Boggs OR Tech:Delia Aguilar, ARRT, RT (R)(N) Ht: 5 ft 7 in Wt: 143 lbs HR: 53 bpm BP: 176/67 mmHg BSA: 1.75 m2 Rhythm: NSR TID: 1.05 BMI: 22.3 History: Chest pain, SOB, Fatigue, HTN, CAD, Hx of SD, High cholesterol, Tobacco use Procedure: Patient received 0.4 mg of intravenous Lexiscan, resting heart rate 53 bpm, resting blood pressure 176/67 mmHg, with Lexiscan maximum heart rate achieved was 77 bpm which is % of the maximum predicted heart rate and blood pressure was 183/65 mmHg. With Lexiscan, patient denied any complaint of chest pain. Cardiac Stress and Resting SPECT Images: Cardiac Stress and Resting SPECT images were obtained using technetium 99m Myoview 31.4 mCi stress and 10.45 mCi at rest. This is a technically difficult study due to body habitus and soft tissue overlying the cardiac borders. This may affect the diagnostic interpretation of the study findings. Resting and stress imaging in supine position demonstrate partial reversible perfusion defect in the basal inferior LV wall. This is no longer visualized with prone stress imaging. This finding is suggestive of soft tissue attenuation. Gated imaging demonstrates normal global and regional LV systolic function. LVEF is calculated at 55%. Conclusion: This is a technically difficult study due to body habitus and soft tissue overlying the cardiac borders. This may affect the diagnostic interpretation of the study findings. No definite evidence of fixed or reversible perfusion defects. Gated imaging demonstrates normal global and regional LV systolic function. LVEF is calculated at 55%. Electronically signed by : Odalys Marquez, 03/02/2023 16:47:59
--- NOTE | 2023-03-02 07:07 | CA_ITS ---
APPROVED REPORT EXAM: Comprehensive 2D, Doppler, and color-flow Echocardiogram Roof Truss Builder: Sabi Ruiz CRT Ht: 5 ft 7 in Wt: 142lbs BSA: 1.75 BP: 124/45 mmHg Indications: Chest Pain, Shortness of Breath, CAD, Hyperlipidemia, Hypertension/HDD, stent 2D Dimensions LVOT 1.78 cm (M/F) 1.5-2.5 LA Volume 17.80 mL LA Volume Index 10.17 mL/m2 (M/F) 16-34 M-Mode Dimensions RVDd 2.72 cm (0.9-2.6) LA Diam 3.74 cm (1.9-4.0) LVDd 4.64 cm (3.5-5.7) Ao Diam 3.56 cm (2.0-3.7) LVDs 3.33 cm (3.5-5.7) IVSd 1.10 cm (0.6-1.1) PWd 0.96 cm (0.6-1.1) EF (Teich) 54.60% FS 28.20% EDV (Teich) 99.30 mL TAPSE 3.06 (<1.7) ESV (Teich) 45.10 mL LV Diastology E Decel Time 240.00 (160-240 msec) E/A Ratio 1.38 MED E' 8.20 (< 7 cm/sec) MED A' 10.00 cm/s E'/MED E' Ratio 11.16 (>14) LAT E' 10.50 (<10 cm/sec) LAT A' 6.50 cm/s E/LAT E' Ratio 8.71 (>14) Aortic Valve AO Peak GR. 6.20 mmHg Mitral Valve MV A Velocity 66.00 (40-130 cm/s) E/A Ratio 1.38 MV Decel. Time 240.00 (160-240 ms) Pulmonary Valve PV Peak Velocity 117.00 (50-150 cm/s) Tricuspid Valve TR P. Velocity 192.00 cm/s RAP Estimate 10.00 mmHg RVSP 24.80 mmHg Left Ventricle The left ventricle is normal size. The left ventricular systolic function is normal. The left ventricular ejection fraction is within the normal range. There is normal left ventricular wall thickness. There is normal LV segmental wall motion. The left ventricular diastolic function is normal. LVEF is 55%. Right Ventricle The right ventricle is normal size. The right ventricular systolic function is normal. Atria The left atrium size is normal. The right atrium size is normal. There is no Doppler evidence of interatrial shunt. Aortic Valve The aortic valve is trileaflet. The aortic valve is normal in structure. There is no aortic valvular stenosis. No aortic regurgitation is present. Mitral Valve The mitral valve is normal in structure. There is no mitral valve regurgitation noted. Tricuspid Valve The tricuspid valve leaflets are thin and pliable. Trace tricuspid regurgitation. RVSP is normal. Pulmonic Valve The pulmonary valve is normal in structure. Trace pulmonic regurgitation. Great Vessels The aortic root is normal in size. Pericardium There is no pericardial effusion. Other Information Study Quality: Adequate Conclusion Normal biventricular systolic function. No significant valvular disease. Electronically signed by : Odalys Marquez, 03/02/2023 15:50:35
--- NOTE | 2023-03-02 08:35 | HMH.ITSHM ---
Current Home Medications as stated by this patient Stephen Wheeler or artist's representative. []TICAGRELOR METOPROLOL LINSIONPRIL VITAMIN D3 ATORVASTATIN ASA ALBUTEROL
--- NOTE | 2023-03-02 09:32 | CA_ITS ---
APPROVED REPORT Exam: Pharmacologic Technologist: Jennifer Nickerson, Ht: 5 ft 7 in Wt: 143 lbs BSA: 1.75 m2 HR: 52 bpm BP: 176/67 mmHg Rhythm: NSR Medical History Medications: Lisinopril,,,,, Aspirin,,,,, Vitamin D3,,,,, Atorvastatin,,,,, Ticagrelor,,,,, Metorpolol succinate ER,,,,, Stress Test Details Test: LEXISCAN Reason for pharmacologic stress test: physical limitation. HR Resting HR: 53 bpm Max Heart Rate (APMHR): 158 bpm Max HR Achieved: 77 bpm Target HR (85% APMHR): 134 bpm % of APMHR: 49 Recovery HR: 58 bpm BP Resting BP: 176.0/67.0 mmHg Max BP: 183.0/65.0 mmHg Recovery BP: 183.0/65.0 mmHg ECG Resting ECG: Sinus bradycardia, right axis deviation, ST-T abns inferiorly Stress ECG: No change Arrhythmia: None Clinical Exercise duration: 04:00 min Highest Stage Achieved: Exercise capacity: n/a METs Stress ECG Conclusion Switched from exercise due to inadequate HR response on metoprolol. Symptoms: Mild SOA, head discomfort. No CP. Arrhythmias/Ectopy: None ST-T Changes: Exaggeration of baseline abns. Conclusion: Non-diagnostic Lexiscan stress. Myoview images reported separately. Test Summary REST . . . . . . . Resting REST 00:52 . . 53 . 176/ 67 . . Stage 1 01:00 . . 75 . . . . Stage 2 01:00 . . 67 . 141/ 63 . . Stage 3 01:00 . . 62 . 160/ 65 . . Stage 4 01:00 . . 61 . 156/ 74 . Stop exercise at 04:00 RECOVERY 01:00 . . 57 . 170/ 65 . . RECOVERY 02:00 . . 60 . 170/ 65 . . RECOVERY 03:00 . . 60 . 170/ 65 . . RECOVERY 03:41 . . 60 . 183/ 65 . . Electronically signed by : Odalys Marquez, 03/02/2023 16:44:01
== END ==
LOC: RAD 06:31
PROVIDERS: PCP Nurse Practitioner Family; Visit Provider Nurse Practitioner Family
DX: I20.8 Other forms of angina pectoris (principal); I10 Essential (primary) hypertension; I21.3 ST elevation (STEMI) myocardial infarction of unspecified site; E78.5 Hyperlipidemia, unspecified; F17.200 Nicotine dependence, unspecified, uncomplicated
CPT/HCPCS: 78452; 93017; 93306; A9502; J2785

== ENCOUNTER → 2023-03-11 13:24 | Outpatient (CLI) | payer BC, SELFPAY ==
--- NOTE | 2023-03-11 13:28 | CA_ITS ---
FINAL REPORT CLINICAL HISTORY: Claudication lt > rt. CAD-coronary stent, Smoker, FINDINGS: RIGHT LOWER EXTREMITY: Velocities cm/sec: SERVICE DEPARTMENT MANAGER: 221 PROF A: 246 SFA Prox: 111 CORE MACHINE OPERATOR: 73 JANNETTE: 63 BRENDA PROX: 39 LEFT LOWER EXTREMITY: Velocities cm/sec: SERVICE DEPARTMENT MANAGER: 71 PROF A: 52 SFA Prox: 35 SFA mid: 85 SFA distal: 72 CORE MACHINE OPERATOR: 60 JANNETTE: 51 BRENDA PROX: 35 Monophasic waveforms are seen throughout bilaterally consistent with bilateral inflow disease. There is occlusion of the right mid and distal SFA. There are multiple moderate stenoses of the left SFA. IMPRESSION: Significant bilateral vascular disease. Recommend CTA or catheter angiogram. Reviewed, Interpreted and Dictated by Obey Ferreira III, MD Transcribed by Yen Nichols Authenticated and [facility]
--- NOTE | 2023-03-11 13:28 | US_ITS ---
FINAL REPORT CLINICAL HISTORY: claudication, cad, smoker, Carotid stenosis FINDINGS: COMPLETE ANKLE/BRACHIAL INDICES BILATERAL Complete ankle brachial indices were obtained. The right POOJA is 0.7. The left POOJA is 0.6. IMPRESSION: Moderate vascular disease bilaterally. Reviewed, Interpreted and Dictated by Obey Ferreira III, MD Transcribed by Yen Nichols Authenticated and [facility]
== END ==
LOC: RT 13:24
PROVIDERS: PCP Nurse Practitioner Family; Visit Provider Internal Medicine
DX: I70.213 Atherosclerosis of native arteries of extremities with intermittent claudication, bilateral legs; R20.0 Anesthesia of skin; R20.2 Paresthesia of skin; I25.10 Atherosclerotic heart disease of native coronary artery without angina pectoris; I10 Essential (primary) hypertension; E78.5 Hyperlipidemia, unspecified; F17.200 Nicotine dependence, unspecified, uncomplicated
CPT/HCPCS: 93923; 93925

== ENCOUNTER 2023-04-22 13:36 | Observation (INO) | payer BC, SELFPAY ==
[2023-04-22] VITALS (54 sets, daily range): BP systolic 97–175; BP diastolic 45–80; PULSE 58–81; RESP 12–20; TEMP 36.1–37.2; O2SAT 97–100; BMI 22.1; BMI 20.5
--- NOTE | 2023-04-22 07:15 | IR_ITS ---
APPROVED REPORT Patient Location: Outpatient PROCEDURES Right femoral arterial access Catheter placed in the abdominal aorta Abdominal aortography Repositioning the catheter in the abdominal aorta Bilateral iliofemoral angiography Left femoral arterial access Left femoral artery retrograde angiogram Angioplasty followed by bare-metal stent deployment to the left common iliac artery Angioplasty followed by bare-metal stent deployment to the left external iliac artery Post stent deployment catheter placed into the abdominal aorta Post stent deployment abdominal aorta with bilateral iliofemoral angiography Selective right renal angiogram Bare-metal stent deployment to the proximal right renal artery INDICATION Abnormal POOJA, [place] claudication class III and IV, Occluded left common and external iliac artery, Right renal artery stenosis, Renovascular hypertension, Informed consent was obtained prior to the procedure. COMPLICATIONS None Estimated Blood Loss: Less than 10 mls TECHNIQUE 1% lidocaine used anesthetize right groin the right femoral artery is accessed via the Salinger technique and a 5 Micronesian sheath was placed in the right femoral artery. A pigtail catheter was advanced to the suprarenal abdominal aorta or suprarenal abdominal aortography was performed. The catheter was then repositioned and bilateral iliofemoral angiography was performed. Following this 1% lidocaine was used anesthetize the left groin and left femoral artery is accessed via the Salinger technique. A 6 Micronesian sheath is placed in the left femoral artery. Therapeutic heparin was then administered giving a therapeutic ACT and an advantage wire was used to push through the chronic occlusion of the left external common iliac artery in a retrograde manner. There was not easy reentry of the wire into the proximal lumen therefore a 6 Micronesian sheath was exchanged for the 5 Micronesian sheath. A Sos Omni catheter was then advanced and an advantage wire was used to position an antegrade manner. Eventually the wire did push into the lumen and the Sos Omni was advanced. The wire from the right groin was then placed in an antegrade manner and then placed inside the sheath in the left femoral artery. The left femoral artery was slowly backed out while the wire was advanced. Hemostats were used to clamp the wire inside the left femoral sheath and the left femoral sheath was removed. A wire now existed with entry into the right femoral artery and then now out of the left femoral artery. A long 6 Micronesian Brite tip sheath was then advanced into the left femoral artery over the wire. A 7 mm x 60 mm balloon was inflated in the proximal left common iliac artery through the right groin and then down to the right external iliac artery. The balloon was pulled back and this allowed an advantage wire to be advanced into the left sheath and then into the true lumen into the abdominal aorta. With the wire now in the abdominal aorta the wire from the right groin which was flossed out of the left femoral sheath was now removed and placed into the abdominal aorta. Over the left groin wire an 8 mm x 57 mm self-expanding stent was deployed at 10 juna reducing the 100% occlusion. An 8 mm x 60 mm self-expanding stent was then placed distal to this extending down and throughout the left external iliac artery. 8 mm 7 mm and 6 mm balloons were used to post dilate the self-expanding and balloon expandable stents. After achieving excellent angiograph results there was wide patency of the left common and external iliac artery with inline flow into the left common femoral artery. Following this a short 6 Micronesian HERNANDEZ guide catheter was placed in the right renal artery were right renal artery angiography was performed. Choice PT extra-support wire
[2023-04-22 08:52] LABS: Basophils # 0.1 K/mm3 (0-0.2); Basophils % 0.6 % (0.1-2.0); Eosinophils # 0.5 K/mm3 (0.0-0.4); Eosinophils % 5.9 % (0.1-12.0); Hematocrit 46.7 % (42.0-52.0); Hemoglobin 14.4 g/dL (14.1-18.0); Lymphocytes # 2.6 K/mm3 (0.7-4.5); Lymphocytes % 30.5 % (10-50); Mean Corpuscular HGB Conc 30.9 g/dL (31.8-35.4); Mean Corpuscular Hemoglobin 32.6 pg (27.0-31.2); Mean Corpuscular Volume 105.5 fl (80-94); Mean Platelet Volume 8.2 fl (7.4-10.4); Monocytes # 0.8 K/mm3 (0.1-1.0); Monocytes % 8.8 % (1.7-9.3); Neutrophils # 4.7 K/mm3 (1.8-7.8); Neutrophils % 54.2 % (37.0-80.0); Platelet Count 236 K/mm3 (142-424); Red Blood Count 4.43 M/mm3 (4.60-6.20); Red Cell Distribution Width 14.8 % (11.5-17.5); White Blood Count 8.6 K/mm3 (4.8-10.8)
[2023-04-22 09:12] LABS: Anion Gap 12.5 mEq/L (5-15); Blood Urea Nitrogen 18 mg/dl (9-20); Calcium 9.3 mg/dl (8.4-10.2); Carbon Dioxide 25 mmol/L (22.0-30.0); Chloride 105 mmol/L (98-107); Creatinine Clearance Estimated 68 mL/min (50-200); Estimated Glomerular Filt Rate 75 ml/min (>60); GFR (African American) 91 ML/MIN (>60); Glucose 105 mg/dl (74-100); Potassium 4.5 mmoL/L (3.5-5.1); Sodium 138 mmol/L (136-145)
--- NOTE | 2023-04-22 14:34 | HMH.PHAINT1 ---
Pharmacy Intervention Comments: MEDICATION RECONCILIATION COMPLETE USING EXTERNAL PHARMACY FILL HISTORY.
[2023-04-22 14:57] LABS: CATHL Activated Clotting Time 332 SEC (74-125)
[2023-04-22 14:58] LABS: CATHL Activated Clotting Time 284 SEC (74-125)
--- NOTE | 2023-04-22 15:12 | PC.NURSE ---
arrived to floor by stretcher from builder's labourer
--- NOTE | 2023-04-22 16:25 | PC.NURSE ---
Patient with complaint of feeling like he needs to urinate. Multiple attempts made to void via urinal laying flat. Patient bladder scanned for 517 ml. Straight cath'd with 525 of pale yellow urine output.
--- NOTE | 2023-04-22 16:47 | EXP.HP ---
History of Present Illness *Admission Date: 04/22/23 *Reason for visit:: Chief complaint: Peripheral vascular disease *History of present illness: This is a 63-year-old male that is admitted to [facility] after interventional vascular procedure for his peripheral vascular disease. His past medical history significant for peripheral vascular disease with ongoing tobacco dependence, COPD, coronary artery disease and hypertension. He presented to his primary care provider with concerns of claudication referred to cardiology for evaluation. Recent arterial Dopplers identified peripheral vascular disease and ABIs were abnormal. He underwent interventional vascular procedure involving a stent to the left common iliac artery, another bare-metal stent to his left external iliac artery and bare-metal stenting of his right renal artery. He was transition to the medical unit for continued observation, fluid resuscitation and lab evaluation. [facility] Medical History (Updated 04/22/23 @ 16:53 by Paul Moe MD) Abnormal ankle brachial index (POOJA) CAD (coronary artery disease) Dyspnea on exertion History of heart attack Left carotid bruit Pulmonary emphysema Smoking greater than 30 pack years Tobacco dependence syndrome Surgical History History of ear surgery Family History Other No significant family history Social History Smoking Status: Current every day smoker tobacco type: cigarettes packs per day: 1 alcohol intake: never current occupational status: employed Travel in the last 8 weeks: Inside the [place] household members: significant other housing: house caffeine: Yes Meds Home Medications and Allergies Home Medications Medication Instructions Recorded Confirmed Type albuterol sulfate 90 mcg/actuation 2 puff inhalation QIDP PRN 04/22/23 04/22/23 History aerosol inhaler (ProAir HFA) shortness of breath or wheezing aspirin 81 mg chewable tablet 81 mg PO DAILY Blood Thinner 04/22/23 04/22/23 History atorvastatin 80 mg tablet 80 mg PO HS Cholesterol 04/22/23 04/22/23 History cholecalciferol (vitamin D3) 1,250 1,250 mcg PO WEEKLY Supplement 04/22/23 04/22/23 History mcg (50,000 unit) tablet cholecalciferol (vitamin D3) 50 50 mcg PO DAILY Supplement 04/22/23 04/22/23 History mcg (2,000 unit) capsule lisinopril 20 mg tablet 20 mg PO DAILY High Blood Pressure 04/22/23 04/22/23 History metoprolol succinate 25 mg 12.5 mg PO DAILY High Blood 04/22/23 04/22/23 History tablet,extended release 24 hr Pressure ticagrelor 90 mg tablet (Brilinta) 90 mg PO BID Blood Thinner 04/22/23 04/22/23 History New Prescriptions to Start Prescriptions: Allergies Allergy/AdvReac Type Severity Reaction Status Date / Time codeine AdvReac Verified 04/22/23 08:44 Exam Data for Last 24 hours Vital signs and Labs for Last 24 Hours: Temp Pulse Resp BP Pulse Ox O2 Del Method 97.9 F 70 18 167/71 H 100 Room Air 04/22/23 15:30 04/22/23 16:04 04/22/23 16:04 04/22/23 16:04 04/22/23 16:04 04/22/23 16:04 Laboratory Results - last 24 hr 04/22/23 08:41: WBC 8.6, RBC 4.43 L, Hgb 14.4, Hct 46.7, MCV 105.5 H, MCH 32.6 H, MCHC 30.9 L, RDW 14.8, Plt Count 236, MPV 8.2, Neut % (Auto) 54.2, Lymph % (Auto) 30.5, [place] % (Auto) 8.8, Eos % (Auto) 5.9, Baso % (Auto) 0.6, Neut # (Auto) 4.7, Lymph # (Auto) 2.6, [place] # (Auto) 0.8, Eos # (Auto) 0.5 H, Baso # (Auto) 0.1, Sodium 138, Potassium 4.5, Chloride 105, Carbon Dioxide 25, Anion Gap 12.5, BUN 18, Creatinine 1.00, Estimated Creat Clear 68, Estimated GFR 75, Est GFR ( Amer) 91, Glucose 105 H, Calcium 9.3 04/22/23 12:07: Activated Clotting Time 284 H* 04/22/23 12:20: Activated Clotting Time 332 H* I & O for Last 24 hours: Intake & Output 04/19/23 04/20/23 04/21/23 04/22/23 23:59 23:59 23:
--- NOTE | 2023-04-22 17:35 | PC.NURSE ---
Oral protonix due. Patient requested to delay administration until he can sit up
[2023-04-23] VITALS: PULSE 64
[2023-04-23 04:00] VITALS: BP 152/78; PULSE 59; PULSE 66; RESP 18; TEMP 37.3; O2SAT 97; BMI 22.0
--- NOTE | 2023-04-23 04:57 | PC.NURSE ---
patient slept well through the night. one episode of vomiting at beginning of shift. prn med given. patient is saturating well on room air. bilateral groin cath sites drsgs are c/d/i. no signs of hematoma. pulses 2+ bilaterally. patient is ambulating independently. no complaints of pain. vitals have been stable.
[2023-04-23 07:27] VITALS: BP 140/79; PULSE 71; RESP 18; TEMP 36.7; O2SAT 98
--- NOTE | 2023-04-23 07:39 | EXP.DC.SUM ---
General Admission date:: 04/22/23 Discharge date: 04/23/23 HPI HPI HPI: This is a 63-year-old male that is admitted to [facility] after interventional vascular procedure for his peripheral vascular disease. His past medical history significant for peripheral vascular disease with ongoing tobacco dependence, COPD, coronary artery disease and hypertension. He presented to his primary care provider with concerns of claudication referred to cardiology for evaluation. Recent arterial Dopplers identified peripheral vascular disease and ABIs were abnormal. He underwent interventional vascular procedure involving a stent to the left common iliac artery, another bare-metal stent to his left external iliac artery and bare-metal stenting of his right renal artery. He was transition to the medical unit for continued observation, fluid resuscitation and lab evaluation. Hospital Course Hospital Course Hospital Course: The patient was admitted to the telemetry unit post procedurally. Problems addressed as follows: Severe peripheral vascular disease Interventional vascular procedure (04/22/2023) with bare-metal stent deployment to LCIA, VAHID, RRA Telemetry monitoring Pulse oximetry monitoring Dual antiplatelet therapy Statin therapy Beta-peter therapy Parenterally administered controlled substance for comfort care IV antiemetics Trending electrolytes and creatinine Outpatient follow-up for consideration of CTA with runoffs Coronary artery disease Telemetry monitoring Previous heart cath with stent deployment Antiplatelet therapy P2 Y12 inhibitor therapy Statin therapy Beta-peter therapy MOIRA inhibitor therapy Outpatient routine electrolyte and creatinine evaluation COPD not in exacerbation Tobacco dependence Pulse oximetry monitoring Oxygen therapy to maintain appropriate oxygen saturations Currently oxygenating appropriately on room air Jeannette/Jeancarlos inhalation therapy as needed Outpatient pulmonary function studies recommended with tobacco use history Tobacco cessation education Nicotine replacement therapy Hypertension Routine blood pressure monitoring Beta-peter therapy MOIRA inhibitor therapy The patient was hospitalized overnight after his procedure and morning labs identified normal renal function and stable hemoglobin. The patient identified improvement and requested to be discharged home to the care of his family. Tobacco cessation education was provided and he understands the importance of cessation to improve his health. I spent 35 minutes in [id number] time with the patient and nursing staff concerning the discharge process. We discussed the admitting diagnoses and hospital course. We discussed identified improvement and the patient's desire to be discharged. We reviewed inpatient studies and imaging. The patient voiced understanding on the importance of follow-up with his primary care provider and sinter feeder. The patient plans to be compliant with the medication regimen prescribed and follow-up appointments. He understands that he can return to the emergency department with any sudden changes or concerns. Exam Data for Last 24 hours Vital signs and Labs for Last 24 Hours: Temp Pulse Resp BP Pulse Ox O2 Del Method 98.0 F 71 18 140/79 98 Room Air 04/23/23 07:27 04/23/23 07:27 04/23/23 07:27 04/23/23 07:27 04/23/23 07:27 04/23/23 07:27 Laboratory Results - last 24 hr 04/22/23 08:41: WBC 8.6, RBC 4.43 L, Hgb 14.4, Hct 46.7, MCV 105.5 H, MCH 32.6 H, MCHC 30.9 L, RDW 14.8, Plt Count 236, MPV 8.2, Neut % (Auto) 54.2, Lymph % (Auto) 30.5, [place] % (Auto) 8.8, Eos % (Auto) 5.9, Baso % (Auto) 0.6, Neut # (Auto) 4.7, Lymph # (Auto) 2.6, [place] # (Auto) 0.8, Eos # (Auto) 0.5 H, Baso # (Auto) 0.1, Sodium 138, Potassium 4.5, Chloride 105, Carbon Dioxide 25, Anion Gap 12.5, BUN 18, Creatinine 1.00, Estimated Creat Clear 68, Estimated GFR 75, Est GFR ( Amer) 91, Glucose 105 H, Calcium 9.3 04/22
[2023-04-23 07:46] LABS: Basophils % 0.2 % (0.1-2.0); Eosinophils # 0.1 K/mm3 (0.0-0.4); Eosinophils % 0.8 % (0.1-12.0); Hematocrit 42.4 % (42.0-52.0); Hemoglobin 13.4 g/dL (14.1-18.0); Lymphocytes # 2.4 K/mm3 (0.7-4.5); Lymphocytes % 17.6 % (10-50); Mean Corpuscular HGB Conc 31.6 g/dL (31.8-35.4); Mean Corpuscular Hemoglobin 32.9 pg (27.0-31.2); Mean Corpuscular Volume 103.9 fl (80-94); Monocytes # 1.3 K/mm3 (0.1-1.0); Monocytes % 9.4 % (1.7-9.3); Neutrophils # 9.8 K/mm3 (1.8-7.8); Platelet Count 213 K/mm3 (142-424); Red Blood Count 4.08 M/mm3 (4.60-6.20); White Blood Count 13.6 K/mm3 (4.8-10.8)
[2023-04-23 07:58] LABS: Anion Gap 11.2 mEq/L (5-15); Blood Urea Nitrogen 18 mg/dl (9-20); Calcium 8.8 mg/dl (8.4-10.2); Carbon Dioxide 24 mmol/L (22.0-30.0); Chloride 107 mmol/L (98-107); Creatinine Clearance Estimated 68 mL/min (50-200); Estimated Glomerular Filt Rate 75 ml/min (>60); GFR (African American) 91 ML/MIN (>60); Glucose 94 mg/dl (74-100); Potassium 4.2 mmoL/L (3.5-5.1); Sodium 138 mmol/L (136-145)
[2023-04-23 08:00] VITALS: PULSE 65
--- NOTE | 2023-04-23 10:11 | PC.NURSE ---
dc packet went over with pt. pt waiting on ride.
--- NOTE | 2023-04-23 10:26 | P.CONPHA_ITS ---
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
--- NOTE | 2023-04-23 11:37 | PC.NURSE ---
still waiting on pts ride
--- NOTE | 2023-04-25 15:16 | CARE MANAGER ---
Spoke with patient girlfriend for post-discharge phone interview, no issues noted.
== END 2023-04-23 12:51 | disposition home or self-care (01) ==
LOC: 2ND 13:36
PROVIDERS: Internal Medicine; Admitting Provider Family Medicine; PCP Nurse Practitioner Family; Visit Provider Family Medicine
DX: I15.0 Renovascular hypertension (principal); I70.1 Atherosclerosis of renal artery; I77.1 Stricture of artery; I25.10 Atherosclerotic heart disease of native coronary artery without angina pectoris; E78.5 Hyperlipidemia, unspecified; I10 Essential (primary) hypertension; I70.212 Atherosclerosis of native arteries of extremities with intermittent claudication, left leg; F17.210 Nicotine dependence, cigarettes, uncomplicated; Z79.899 Other long term (current) drug therapy; Z79.01 Long term (current) use of anticoagulants; J44.9 Chronic obstructive pulmonary disease, unspecified
CPT/HCPCS: 36251; 36415; 37221; 37222; 80048; 85025; 85347; 99152; 99153; C1725; C1766; C1769; C1876; C1887; C1894; G0378; J1644; J2405; J2720; Q9966

== ENCOUNTER 2023-05-10 09:34 | Day surgery (SDC) | payer BC, SELFPAY ==
[2023-05-10] VITALS (10 sets, daily range): BP systolic 103–170; BP diastolic 60–83; PULSE 45–55; RESP 17–19; O2SAT 99–100; BMI 22.8
--- NOTE | 2023-05-10 07:07 | IR_ITS ---
APPROVED REPORT Patient Location: Outpatient Pile Driving Supervisor: GERSON Briones RT (R) PROCEDURES Catheter placement in the right common iliac artery Right common iliac artery antegrade angiogram with unilateral runoff to the right foot Informed consent was obtained prior to the procedure. COMPLICATIONS None Estimated Blood Loss: Less than 10 ML TECHNIQUE 1% lidocaine used to anesthetize the left femoral groin. The left femoral artery was accessed via the Seldinger technique. Using fluoroscopic guidance the rim catheter was advanced from the aorta into the right common iliac artery. There unilateral selective angiography with runoff to the foot was performed. Following this the catheter was pulled back into the right common iliac artery and angiography was performed. At the end of the procedure the patient was transferred to the postop holding area in stable condition for sheath removal. ANGIOGRAPHIC RESULTS Right common internal and external iliac arteries are widely patent Right profunda femoris artery is widely patent Right superficial femoral artery is occluded 1 cm distal to the origin and then reconstitutes in the distal portion of Antione's canal via collaterals from the profunda femoris. Right popliteal artery is patent The proximal right anterior and posterior tibialis arteries are patent as is the right peroneal artery. There is slow flow down the calf with what appears to be two-vessel runoff in the right ankle IMPRESSION Chronically occluded right superficial femoral artery Current tobacco user PLAN 1. Unlike the iliac arteries which were revascularized a few weeks ago, the superficial femoral artery is much more sensitive to ongoing tobacco usage. I recommend medical management until patient is no longer smoking as the likelihood for reocclusion is quite high in active smokers 2. Should patient develop [place] claudication class IV 5 or 6 then we could proceed with revascularizing the right superficial femoral artery 3. LDL less than 55 to be achieved with high intensity statin 4. Xarelto 2.5 twice daily plus aspirin 81 mg daily 5. Aggressive risk factor modification for probably vascular disease Electronically signed by : Jose Francisco Washington MD 05/10/2023 12:21:30
[2023-05-10 10:01] LABS: Basophils # 0.1 K/mm3 (0-0.2); Basophils % 0.5 % (0.1-2.0); Eosinophils % 9.4 % (0.1-12.0); Hematocrit 41.2 % (42.0-52.0); Hemoglobin 12.8 g/dL (14.1-18.0); Lymphocytes # 2.7 K/mm3 (0.7-4.5); Mean Corpuscular HGB Conc 31.2 g/dL (31.8-35.4); Mean Corpuscular Hemoglobin 32.5 pg (27.0-31.2); Mean Corpuscular Volume 104.2 fl (80-94); Mean Platelet Volume 7.8 fl (7.4-10.4); Monocytes # 0.8 K/mm3 (0.1-1.0); Monocytes % 7.4 % (1.7-9.3); Neutrophils # 5.8 K/mm3 (1.8-7.8); Neutrophils % 56.8 % (37.0-80.0); Platelet Count 277 K/mm3 (142-424); Red Blood Count 3.96 M/mm3 (4.60-6.20); Red Cell Distribution Width 15.2 % (11.5-17.5); White Blood Count 10.3 K/mm3 (4.8-10.8)
[2023-05-10 10:11] LABS: Anion Gap 9.4 mEq/L (5-15); Blood Urea Nitrogen 14 mg/dl (9-20); Calcium 9.4 mg/dl (8.4-10.2); Carbon Dioxide 31 mmol/L (22.0-30.0); Chloride 104 mmol/L (98-107); Creatinine Clearance Estimated 63 mL/min (50-200); Estimated Glomerular Filt Rate 68 ml/min (>60); GFR (African American) 82 ML/MIN (>60); Glucose 106 mg/dl (74-100); Potassium 4.4 mmoL/L (3.5-5.1); Sodium 140 mmol/L (136-145)
== END 2023-05-10 15:18 | disposition home or self-care (01) ==
PROVIDERS: PCP Nurse Practitioner Family; Visit Provider Internal Medicine
DX: I25.10 Atherosclerotic heart disease of native coronary artery without angina pectoris (principal); E78.5 Hyperlipidemia, unspecified; F17.210 Nicotine dependence, cigarettes, uncomplicated; I10 Essential (primary) hypertension; I70.211 Atherosclerosis of native arteries of extremities with intermittent claudication, right leg; J43.9 Emphysema, unspecified; M79.604 Pain in right leg; I77.1 Stricture of artery
CPT/HCPCS: 36247; 75710; 80048; 85025; 99152; C1725; C1769; C1894; J1644; Q9966

== ENCOUNTER 2024-02-23 13:59 | Outpatient (CLI) | payer BC, SELFPAY ==
[2024-02-23 14:58] LABS: Basophils # 0.1 K/mm3 (0-0.2); Eosinophils # 0.4 K/mm3 (0.0-0.4); Hematocrit 44.5 % (42.0-52.0); Hemoglobin 14.3 g/dL (14.1-18.0); Lymphocytes # 2.8 K/mm3 (0.7-4.5); Lymphocytes % 36.5 % (10-50); Mean Corpuscular HGB Conc 32.1 g/dL (31.8-35.4); Mean Corpuscular Hemoglobin 34.1 pg (27.0-31.2); Mean Corpuscular Volume 106.1 fl (80-94); Monocytes # 0.6 K/mm3 (0.1-1.0); Monocytes % 8.4 % (1.7-9.3); Neutrophils # 3.7 K/mm3 (1.8-7.8); Neutrophils % 49.1 % (37.0-80.0); Platelet Count 217 K/mm3 (142-424); White Blood Count 7.6 K/mm3 (4.8-10.8)
[2024-02-23 15:11] LABS: Chloride 108 mmol/L (98-107); Potassium 4.5 mmoL/L (3.5-5.1); Sodium 138 mmol/L (136-145)
[2024-02-23 15:14] LABS: Alanine Aminotransferase 33 U/L (12-78); Alkaline Phosphatase 117 U/L (38-126); Anion Gap 8.5 mEq/L (5-15); Aspartate Amino Transferase 34 U/L (17-59); Bilirubin,Indirect 0.3 mg/dL (0.0-0.9); Bilirubin,Total 0.3 mg/dl (0.2-1.3); Bilirubin,Unconjugated 0.4 mg/dL (0.0-1.1); Blood Urea Nitrogen 19 mg/dl (9-20); Calcium 9.4 mg/dl (8.4-10.2); Carbon Dioxide 26 mmol/L (22.0-30.0); Chol/HDL Ratio 1.8 (1-3.5); Cholesterol 109 mg/dl (140-200); Estimated Glomerular Filt Rate 75 ml/min (>60); GFR (African American) 91 ML/MIN (>60); Glucose 95 mg/dl (74-100); HDL Cholesterol 62 mg/dl (40-60); Triglycerides 54 mg/dl (30-150); VLDL Cholesterol 11 mg/dL (0-40)
[2024-02-23 15:26] LABS: Direct LDL Cholesterol 32.19 mg/dL (100-129)
== END 2024-02-23 23:59 | disposition home or self-care (01) ==
LOC: LAB 14:00
PROVIDERS: PCP Nurse Practitioner Family; Visit Provider Nurse Practitioner
DX: F17.200 Nicotine dependence, unspecified, uncomplicated (principal); E78.5 Hyperlipidemia, unspecified; I10 Essential (primary) hypertension
CPT/HCPCS: 36415; 80048; 80061; 80076; 85025

== ENCOUNTER 2025-02-25 13:37 | Outpatient (CLI) | payer BC, SELFPAY ==
--- OUTSIDE RECORDS SUMMARY | 2025-02-25 13:39 | XMS_ITS | Clinical Summary ---
Author Organization [facility] Address [address] [place] [address] Care Team Providers Care [employer] Faculty Member Name Role Phone Kamar Joshi MD Primary Care Provider + [phone] Allergies Active Allergy Reactions Criticality Noted Date Comments Codeine Hives Medium 11/30/2021 Medications lisinopril 20 MG tablet Take 1 tablet (20 mg) by mouth 1 (one) time each day. 2 Active atorvastatin (Lipitor) 80 MG tablet Take 1 tablet (80 mg) by mouth every night. 2 Active metoprolol succinate XL (Toprol-XL) 25 MG 24 hr tablet TAKE 1/2 (ONE-HALF) TABLET BY MOUTH ONCE DAILY 2 Active Brilinta 90 MG tablet Take 1 tablet (90 mg) by mouth 2 (two) times a day. 2 Active aspirin 81 MG chewable tablet Chew 1 tablet (81 mg) 1 (one) time each day. Active albuterol 108 (90 Base) MCG/ACT inhaler INHALE 2 PUFFS BY MOUTH 4 TIMES DAILY NEEDED FOR SHORTNESS OF BREATH FOR WHEEZING Active Vitamin D, Cholecalciferol , 50 MCG (2000 UT) capsule Take 1 capsule (2,000 Units) by mouth 1 (one) time each day. Active clopidogrel (Plavix) 75 MG tablet Take 1 tablet (75 mg) by mouth 1 (one) time each day. 3 Active ibuprofen 800 MG tablet Take 1 tablet (800 mg) by mouth every 8 (eight) hours if needed. 09/05/202 3 Active Active Problems Problem Noted Date Diagnosed Date Primary hypertension 11/30/2021 Other hyperlipidemia 11/30/2021 Bilateral carotid artery stenosis 11/30/2021 Coronary artery disease invo lving [place] coronary artery of [place] heart without angina pectoris 11/30/2021 Social History Tobacco Use Types Packs/Day Years Used Date Smoking Tobacco: Every Day Cigarettes 0.8 42.6 Started: 1982 Passive Smoke Exposure: Past Smokeless Tobacco: Never Tobacco Cessation:Ready to Q uit: Not Asked; Counseling Given: Not Answered Comments: Alcohol Use Standard Drinks/Week Comments Not Currently 0 (1 standard drink = 0.6 oz pur e alcohol) PHQ-2 Answer Date Recorded Patient Health Questionnaire-2 Score 0 08/17/2023 PHQ-2A Answer Date Recorded Patient Health Questionnaire-2 Score 0 11/29/2022 Sex and Gender Information Value Date Recorded Sex Assigned at Not on file Legal Sex Male 8:39 PM EDT Gender Identity Not on file Sexual Orientation Not on file Last Filed Vital Signs Vital Sign Reading Time Taken Comments Blood Pressure 150/71 08/17/2023 10:37 AM EST Pulse 57 08/17/2023 10:37 AM EST Temperature 36.8 C (98.3 F) 08/17/2023 10:31 AM EST Respiratory Rate 18 11/29/2022 2:22 PM EDT Oxygen Saturation - - Inhaled Oxygen Concentration - - Weight 64.3 kg (141 lb 12.1 oz) 024 10:31 AM EST Height 175.3 cm (5' 9 ) 08/17/2023 10:3 1 AM EST Body Mass Index 20.93 08/17/2023 10:31 AM EST Plan of Treatment Health Maintenance Due Date Last Done Comments [facility]-HIV Screening 1960 [facility]-Hepatitis C Screening 1960 [facility]-/Child/Adol SDOH Screenings 1960 [facility]- SDOH Screenings 1978 [facility]-Adult SDOH Screenings 1978 [facility]-DTaP,Tdap,and Td Vaccine s (1 - Tdap) 1979 CT Colonography 2005 Colonoscopy 2005 FIT-DNA 2005 FIT 2005 FOBT 2005 Sigmoidoscopy 2005 [facility]-Colorectal Cancer Screening 2005 [facility]-Pneumococcal Vaccine: 50 + Years (1 of 1 - PCV) 2010 [facility]-Zoster Vaccines (1 of 2) 2010 [id number] Vaccine ( - 2023- season) 2024 07/10/2021, 12/05/2020, 11/07/2020 [facility]-Depression Screening 08/17/2024 08/17/2023 [facility]-Influenza Vaccine (#1) 2025 [facility]-RSV Vaccine: 60+ Years o r (1 - 1-dose 75+ series) 2035 HPV Vaccines Aged Out No longer eligi ble based on patient's age to complete this topic [facility]-HIB Vaccines Aged Out No longer e ligible based on patient's age to complete this topic [facility]-Hepatitis A Vaccines Aged Out No longer eligible based on patient's age to complete this topic [facility]-IPV Vaccines Aged Out No longer e ligible based on patient's age to complete this topic [facility]-Rotavirus Vaccines Aged Out No lo nger eligible based on patient's age to complete this topic Insurance ANTH Care Teams [employer] Faculty Member Relationship Specialty Start Date End Date Kamar Joshi MD [address] [place] [address] PCP - General 11/30/21
[2025-02-25 15:15] LABS: Hematocrit 37.2 % (42.0-52.0); Hemoglobin 12.7 g/dL (14.1-18.0); Immature Granulocytes % 0.3 %; Mean Corpuscular HGB Conc 34.1 g/dL (31.8-35.4); Mean Corpuscular Hemoglobin 32.8 pg (27.0-31.2); Mean Corpuscular Volume 96.1 fl (80-94); Nucleated Red Blood Cells % 0 %; Platelet Count 208 K/mm3 (142-424); Red Blood Count 3.87 M/mm3 (4.60-6.20); Red Cell Distribution Width-SD 51.0 fL; White Blood Count 7.0 K/mm3 (4.8-10.8)
[2025-02-25 15:36] LABS: Albumin Level 4.1 g/dl (3.5-5.0); Chloride 102 mmol/L (98-107)
[2025-02-25 15:37] LABS: Potassium 4.1 mmoL/L (3.5-5.1); Sodium 134 mmol/L (136-145)
[2025-02-25 15:39] LABS: Alanine Aminotransferase 23 U/L (12-78); Alkaline Phosphatase 123 U/L (38-126); Anion Gap 11.1 mEq/L (5-15); Aspartate Amino Transferase 30 U/L (17-59); Bilirubin,Direct 0.4 mg/dl (0.0-0.4); Bilirubin,Indirect 0.0 mg/dL (0.0-0.9); Bilirubin,Total 0.4 mg/dl (0.2-1.3); Bilirubin,Unconjugated 0.0 mg/dL (0.0-1.1); Blood Urea Nitrogen 19 mg/dl (9-20); Carbon Dioxide 25 mmol/L (22.0-30.0); Creatinine,Serum 1.00 mg/dl (0.66-1.25); Estimated Glomerular Filt Rate 75 ml/min (>60); GFR (African American) 91 ML/MIN (>60); Total Protein,Serum 6.8 g/dl (6.3-8.2); Triglycerides 147 mg/dl (30-150)
[2025-02-25 15:40] LABS: Calcium 9.7 mg/dl (8.4-10.2); Cholesterol 113 mg/dl (140-200); Glucose 120 mg/dl (74-100); HDL Cholesterol 53 mg/dl (40-60); Magnesium 1.9 mg/dl (1.6-2.3)
[2025-02-25 15:55] LABS: Free T4 (Free Thyroxine) 0.89 ng/dl (0.78-2.19)
[2025-02-25 16:12] LABS: Thyroid Stimulating Hormone 3.30 uIU/mL (0.465-4.68)
== END 2025-02-25 23:59 | disposition home or self-care (01) ==
LOC: LAB 13:37
PROVIDERS: Visit Provider Nurse Practitioner
DX: I10 Essential (primary) hypertension (principal); I21.3 ST elevation (STEMI) myocardial infarction of unspecified site; R42 Dizziness and giddiness
CPT/HCPCS: 36415; 80048; 80061; 80076; 83735; 84439; 84443; 85025; 93270

== ENCOUNTER 2025-03-14 11:52 | Outpatient (CLI) | payer BC, SELFPAY ==
--- NOTE | 2025-03-14 | CA_ITS ---
APPROVED REPORT Exam: Pharmacologic Ht: 6 ft 7 in Wt: 136 lbs BSA: 1.93 m2 Medical History Medications: atorvastatin, clopidogrel, lisinopril, metoprolol succinate ER. Stress Test Details Test: Lexiscan Reason for pharmacologic stress test: physical limitation. HR Resting HR: 53 bpm Max Heart Rate (APMHR): 156.928531 bpm Max HR Achieved: 69 bpm Target HR (85% APMHR): 132.756249 bpm % of APMHR: 44.23 Recovery HR: 58 bpm BP Resting BP: 146.0/70.0 mmHg Max BP: 169.0/69.0 mmHg Recovery BP: 169.0/69.0 mmHg ECG Resting ECG: SR, bradycardia, No ectopy Stress ECG Conclusion Symptoms: None. Arrhythmias/Ectopy: None. ST-T Changes: Less than 1mm. Electronically signed by : Odalys Marquez MD 03/15/2025 09:52:45
--- OUTSIDE RECORDS SUMMARY | 2025-03-14 11:55 | XMS_ITS | Clinical Summary ---
Author Organization [facility] Address [address] 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 Name Role Phone Kamar Joshi MD Primary Care Provider + [phone] Allergies Active Allergy Reactions Criticality Noted Date [...] stenosis 11/30/2021 Coronary artery disease invo lving [place] coronary artery of [place] heart without angina pectoris 11/30/2021 Social History [...] [facility]-HIV Screening 1960 [facility]-Hepatitis C Screening 1960 [facility]-Infant/Child/Adol SDOH Screenings 1960 [facility]- SDOH Screenings 1978 [facility]-Adult SDOH Screenings 1978 [facility]-DTaP,Tdap,and Td Vaccine s (1 - Tdap) 1979 CT Colonography 2005 Colonoscopy 2005 FIT-DNA 2005 FIT 2005 FOBT 2005 Sigmoidoscopy 2005 [facility]-Colorectal Cancer Screening 2005 [facility]-Pneumococcal Vaccine: 50 + Years (1 of 1 - PCV) 2010 [facility]-Zoster Vaccines (1 of 2) 2010 [id number] Vaccine ( - 2023- season) 2024 07/10/2021, [...] complete this topic Insurance ANTH Care Teams Absorption Plant Operator Helper Relationship Specialty Start Date End Date Kamar Joshi MD [address] [place] [address] PCP - General 11/30/21
--- NOTE | 2025-03-14 12:00 | NM_ITS ---
APPROVED REPORT Exam: Nuclear Stress Test Indication: Chest pain, SOB, Dizziness, Fatigue, HTN, Tobacco use, Bradycardia, CAD, Hx of CO Patient Location: Outpatient Stress Tech: Jennifer Boggs MI Tech:Jeana bAad, ARRT RT(R)(N) Ht: 5 ft 7 in Wt: 143 lbs HR: 55 bpm BP: 146/70 mmHg BSA: 1.75 m2 TID: 1.14 BMI: 22.3 History: Chest pain, SOB, Dizziness, Fatigue, HTN, Tobacco use, Bradycardia, CAD, Hx of CO Procedure: Patient received 0.4 mg of intravenous Lexiscan, resting heart rate 55 bpm, resting blood pressure 146/70 mmHg, with Lexiscan maximum heart rate achieved was 69 bpm which is % of the maximum predicted heart rate and blood pressure was 147/57 mmHg. With Lexiscan, patient denied any complaint of chest pain. Cardiac Stress and Resting SPECT Images: Cardiac Stress and Resting SPECT images were obtained using technetium 99m Myoview 30.8 mCi stress and 10.53 mCi at rest. Resting and stress imaging in supine and prone positions demonstrate a medium-sized, moderate, predominantly fixed perfusion defect in the basal to mid inferior LV wall. There is a small region of reversibility towards the basal inferior LV wall. Gated imaging demonstrates mild reduction in global LV systolic function. LVEF is calculated at 48%. Conclusion: Medium-sized, moderate, predominantly fixed perfusion defect in the basal to mid inferior LV wall. There is a small region of reversibility towards the basal inferior LV wall. Gated imaging demonstrates mild reduction in global LV systolic function. LVEF is calculated at 48%. Electronically signed by : Odalys Marquez MD 03/15/2025 09:48:23
[2025-03-14] MEDS: ISOTOPE MYOVIEW (PER STUDY) 1 DOSE IV (13:43)
[2025-03-14] MEDS: SODIUM CHLORIDE 0.9% 10ML SYR (RAD ONLY) 10 ML IV ×2 (13:43)
--- NOTE | 2025-03-14 14:45 | CA_ITS ---
APPROVED REPORT EXAM: Comprehensive 2D, Doppler, and color-flow Echocardiogram Director Integrated: LUCINA Gray, RVS Ht: 5 ft 7 in Wt: 121lbs BSA: 1.63 BP: 121/53 mmHg Indications: Smoker, CAD, CP, Dizziness, Bradycardia 2D Dimensions IVSd 1.14 cm LVEF (Visual) 61.10 % PWd 0.94 cm LA Volume 75.80 mL LVDd 4.91 cm LA Volume Index 45.40 mL/m2 (M/F) 16-34 LVDs 3.30 cm Left Atrium 3.64 cm M-Mode Dimensions RVDd 2.48 cm (0.9-2.6) LA Diam 3.98 cm (1.9-4.0) LVDd 4.61 cm (3.5-5.7) LVDs 3.61 cm (3.5-5.7) IVSd 1.03 cm (0.6-1.1) PWd 1.13 cm (0.6-1.1) EF (Teich) 44.00% EPSs 0.32 cm FS 21.70% EDV (Teich) 97.80 mL TAPSE 2.52 (<1.7) ESV (Teich) 54.80 mL LV Diastology E Decel Time 260 (160-240 msec) E/A Ratio 1.22 MED A' 10.20 cm/s LAT A' 7.60 cm/s Aortic Valve JORGE Index 2.24 cm2/m2 AoV Peak Gerardo. 109.0 (50-130 cm/s) AO Peak GR. 4.70 mmHg AO Mean GR. 2.40 (<5 mmHg) AO VTI 27.2 (18-25 cm) JORGE (VTI) 3.74 (2.5-4.5 cm2) Mitral Valve MV A Velocity 86.0 (40-130 cm/s) E/A Ratio 1.22 Pulmonary Valve PV Peak Velocity 121.0 (50-150 cm/s) Tricuspid Valve TR P. Velocity 227.00 cm/s RAP Estimate 10.00 mmHg RVSP 30.50 mmHg Left Ventricle The left ventricle is normal size. Left ventricular systolic function is normal. The left ventricular ejection fraction is within the normal range. There is increased left ventricular wall thickness. There is normal LV segmental wall motion. The left ventricular diastolic function is normal. LVEF is 55% Right Ventricle The right ventricle is normal size. The right ventricular systolic function is normal. Atria The left atrium is moderately dilated. The right atrium size is normal. There is no color Doppler evidence of interatrial shunt. Aortic Valve The aortic valve is mildly thickened. There is no hemodynamically significant aortic valvular stenosis. No aortic regurgitation is present. Mitral Valve The mitral valve is normal in structure. No evidence of mitral valve stenosis. Mild mitral regurgitation is present. Tricuspid Valve The tricuspid valve leaflets are thin and pliable. Trace tricuspid regurgitation. There is insufficient TR jet to estimate RVSP. Pulmonic Valve The pulmonary valve is grossly normal in structure. Trace pulmonic valve regurgitation is present. Great Vessels The aortic root is normal in size. IVC is normal in size and collapses >50% with inspiration. Pericardium There is no pericardial effusion. Other Information Study Quality: Fair Conclusion Normal biventricular systolic function. Moderate LA dilation. Mild MR. Electronically signed by : Odalys Marquez MD 03/15/2025 09:19:46
== END 2025-03-14 23:59 | disposition home or self-care (01) ==
LOC: RAD 11:53
PROVIDERS: PCP Nurse Practitioner; Visit Provider Nurse Practitioner
DX: I34.0 Nonrheumatic mitral (valve) insufficiency (principal); I11.9 Hypertensive heart disease without heart failure; I21.3 ST elevation (STEMI) myocardial infarction of unspecified site; F17.200 Nicotine dependence, unspecified, uncomplicated; I25.2 Old myocardial infarction; R00.1 Bradycardia, unspecified; R94.39 Abnormal result of other cardiovascular function study
CPT/HCPCS: 78452; 93016; 93017; 93018; 93306; A9502; J2785

== ENCOUNTER 2025-07-25 09:33 | Outpatient (CLI) | payer MEDICARE, SELFPAY ==
--- OUTSIDE RECORDS SUMMARY | 2025-07-25 09:49 | XMS_ITS | Clinical Summary ---
Author Organization [facility] Address [address] [place] [address] Care Team Providers Care Silk Top Hat Body Maker Name Role Phone Kamar Joshi MD Primary Care Provider + [phone] Allergies Active Allergy Reactions Criticality Noted Date [...] stenosis 11/30/2021 Coronary artery disease invo lving [place] coronary artery of [place] heart without angina pectoris 11/30/2021 Social History Tobacco Use Types Packs/Day Years Used Date Smoking Tobacco: Every Day Cigarettes 0.8 43 Started: 1982 Passive Smoke Exposure: Past Smokeless [...] Health Maintenance Due Date Last Done Comments [facility]-Hepatitis C Screening 1960 [facility]-/Child/Adol SDOH Screenings 1960 [facility]- SDOH Screenings 1978 [facility]-Adult SDOH Screenings 1978 [facility]-DTaP,Tdap,and Td Vaccine s (1 - Tdap) 1979 CT Colonography 2005 Colonoscopy 2005 FIT-DNA 2005 FIT 2005 FOBT 2005 Sigmoidoscopy 2005 [facility]-Colorectal Cancer Screening 2005 [facility]-Pneumococcal Vaccine: 50 + Years (1 of 1 - PCV) 2010 [facility]-Zoster Vaccines (1 of 2) 2010 [facility]-Depression Screening 08/17/2024 08/17/2023 [id number] Vaccine (4 - 2024- season) 2025 07/10/2021, 12/05/2020, 11/07/2020 [facility]-Influenza Vaccine (#1) 2025 [facility]-RSV Vaccine: 60+ Years o r (1 - 1-dose 75+ series) 2035 HPV Vaccines (No Doses Required) Completed [facility]-HIB Vaccines Aged Out No longer e [...] patient's age to complete this topic Insurance Care Teams Silk Top Hat Body Maker Relationship Specialty Start Date End Date Kamar Joshi MD [address] [place] [id number] PCP - General 11/30/21
[2025-07-25 11:04] LABS: C-Reactive Protein 1.7 mg/L (0-4); Hemoglobin A1C 5.7 % (4.0-6.0)
[2025-07-25 11:46] LABS: Vitamin B12 298 pg/mL (239-931)
[2025-07-25 11:52] LABS: Hepatitis C Ab Qual. W/ RFX NEGATIVE (Negative)
[2025-07-25 12:03] LABS: Folate 7.12 ng/mL
== END 2025-07-25 23:59 | disposition home or self-care (01) ==
LOC: LAB 09:33
PROVIDERS: PCP Internal Medicine; Visit Provider Internal Medicine
DX: R50.9 Fever, unspecified (principal); I10 Essential (primary) hypertension; I25.10 Atherosclerotic heart disease of native coronary artery without angina pectoris; D53.9 Nutritional anemia, unspecified; Z11.4 Encounter for screening for human immunodeficiency virus [HIV]; Z11.59 Encounter for screening for other viral diseases; Z13.1 Encounter for screening for diabetes mellitus
CPT/HCPCS: 36415; 82607; 82746; 83036; 86140; 86225; 86235; 86803; 87389